=== PATIENT | male | born 1970 | race Caucasian/White ===

== ENCOUNTER → 2018-06-03 08:37 | Outpatient (CLI) | payer OTHER, SELFPAY ==
[2018-06-03 09:20] LABS: Absolute Lymphocyte Count 1.31 X10^3/ul (0.83-4.51); Absolute Neutrophil Count 5.2 X10^3/uL (2.0-7.7); Basophil# 0.04 X10^3/uL; Basophil% 0.5 % (0-1); Eosinophil# 0.07 X10^3/uL; Hematocrit 45.2 % (40-54); Hemoglobin 15.2 g/dl (13.0-16.5); Lymphocyte # 1.31 X10^3/ul (4.0); Mean Corp Hgb Conc 33.6 g/gl (32-36); Mean Corpuscular Hgb 29.2 pg (27.0-32.0); Mean Corpuscular Volume 86.9 fL (80-94); Mean Platelet Vol. 10.1 fl (6.2-12.0); Monocyte# 0.66 X10^3/uL; Monocyte% 9.1 % (0-10); Neutrophil % 71.3 % (47-70); Platelet Count 252 K/mm3 (150-450); RBC Distribution Width CV 12.4 % (11.6-14.6); RBC Distribution Width SD 39.5 fl (35.1-43.9); White Blood Count 7.3 K/mm3 (4.4-11.0)
[2018-06-03 09:25] LABS: POSITIVE COUNT NO; POSITIVE DIFFERENTIAL NO; POSITIVE MORPHOLOGY NO
[2018-06-03 10:01] LABS: AST(SGOT) 14 U/L (15-37); Alanine Aminotransfer ALT/SGPT 20 U/L (16-61); Albumin, Serum 3.5 g/dL (3.2-5.0); Alkaline Phosphatase 71 U/L (45-117); Anion Gap 10 (5-15); BUN 13 mg/dL (7-18); BUN/Creat Ratio 9.4 RATIO (10-20); Bilirubin, Direct 0.15 mg/dL (0.00-0.30); Calcium,Total 8.6 mg/dL (8.5-10.1); Chloride 102 mmol/L (98-107); Cholesterol 152 mg/dL (200); Creatinine, Serum 1.38 mg/dL (0.70-1.30); EST Glomerular Filtration Rate 59 mL/min (>60); Est Glom Filt Rate - Afr Amer 71 mL/min (>60); Globulin 4.5 g/dL (2.2-4.2); Glucose 97 mg/dL (74-106); High Density Lipoprotein 47 mg/dL; PSA,Total - Annual Screen 1.42 ng/mL (0.00-4.00); Potassium 4.2 mmol/L (3.5-5.1); Sodium Level 139 mmol/L (136-145); Triglycerides 67 mg/dL; Very Low Density Lipoprotein 13 mg/dL (5-40)
== END ==
PROVIDERS: Family Provider Internal Medicine; PCP Internal Medicine; Visit Provider Internal Medicine
DX: K57.30 Diverticulosis of large intestine without perforation or abscess without bleeding (principal); N41.0 Acute prostatitis
CPT/HCPCS: 36415; 80048; 80061; 80076; 84153; 85025; G0103

== ENCOUNTER 2018-07-31 10:46 | Emergency (ER) | payer OTHER, SELFPAY ==
[2018-07-31 10:47] VITALS: BP 119/86; PULSE 85; RESP 16; TEMP 36.8; O2SAT 97; BMI 25.4
[2018-07-31 11:49] LABS: Hematocrit 45.6 % (40-54); Hemoglobin 15.8 g/dl (13.0-16.5); Mean Corp Hgb Conc 34.6 g/gl (32-36); Mean Corpuscular Hgb 30.3 pg (27.0-32.0); Mean Corpuscular Volume 87.5 fL (80-94); Mean Platelet Vol. 10.2 fl (6.2-12.0); Platelet Count 194 K/mm3 (150-450); RBC Distribution Width CV 13.2 % (11.6-14.6); RBC Distribution Width SD 42.6 fl (35.1-43.9); Red Blood Count 5.21 M/mm3 (4.6-6.2); Scan Indicated on CBC? Y/N NO; White Blood Count 6.1 K/mm3 (4.4-11.0)
--- NOTE | 2018-07-31 12:48 | ED.DCSUM_ITS ---
History of Present Illness Chief Complaint: Nosebleed Informant: Patient Onset: Hours - 2 Context: Sudden Onset - spontaneous Timing: Intermittent Quality: heavy bleeding Location: right naris, followed by bilaterally Current Severity: stopped Maximum Severity: Severe Worsened by: nothing Relieved by: nothing Associated Symptoms: near-syncopal, nauseated -- resolved; swallowed lots of blood Narrative: Patient states for quite a while, he was having significant amount of bleeding, it was sprain out of the right side of his nose everywhere and he was swallowing significant amounts, he did tilt back and eventually blood was coming out of both sides even though initially it was the right. He states that holding pressure did not seem to help, although with time the bleeding seemed to stop spontaneously and after that he swallowed what felt like a large clot, and now the right side of his nose feels clear he can breathe through it, and the bleeding has stopped and now his symptoms are gone. He feels like he lost a lot of blood after looking around and swallowing a lot of blood. He states he has had mild intermittent bleeding about 4 times in the past week but nothing like what he experienced prior to arrival today. Past Medical History - Allergies and Home Meds Allergies/Adverse Reactions: Allergies No Known Allergies Allergy (Verified 07/31/18 10:47) Smoking Status: Never smoker Drugs: None Review of Systems All systems negative except as indicated General: Reports: Malaise - and near-syncopal earlier; better now ENT: Reports: - - nosebleed Gastrointestinal: Reports: Nausea Physical Exam Vital Signs/Narrative: Vital Signs Temp Pulse Resp BP Pulse Ox 07/31/18 10:47 98.2 F 85 16 119/86 H 97 Inital Vital Signs reviewed: Yes General: Well nourished, Well developed, - - Well-appearing, NAD Head: Normocephalic, Atraumatic Eyes: Perrl, EOMI ENT: Moist mucous membranes, No rhinorrhea, - - Posterior oropharynx clear, no bleeding or blood. Bilateral nares clear with no source anterior at Kesselbach' s plexus. No septal perforation or deviation.. Negative for: Sinus tenderness Neck: Supple, Nontender, - - no stridor Respiratory: No distress, CTA bilaterally Skin: Normal color, No rash Neurological: Alert, Oriented x3, Cranial nerves II-XII grossly intact, Normal Strength, Normal Sensation Psychological: Normal affect Diagnostic/Tx/Re-eval Laboratory Tests 07/31/18 11:40 WBC 6.1 RBC 5.21 Hgb 15.8 Hct 45.6 MCV 87.5 MCH 30.3 MCHC 34.6 RDW 13.2 RDW Differential 42.6 Plt Count 194 MPV 10.2 - Medical Decision Making Patient was monitored for a couple hours in the ER while we waited for a CBC to come back which was normal. He had no recurrent bleeding. We talked at length about packing placement, and the possibility of bleeding recurrence. It sounds like it is more likely to be anterior, but it is certainly not extremely anterior, or reachable with pressure to the nose evidently, and the source is not able to be seen by myself. I do not have the ability to scope his nose here in the ER. After lots of discussion, he decided to avoid packing and follow-up with ENT, and actually after calling the office got an appointment for about an hour after discharge. He was requesting discharge and was given appropriate instructions, including avoiding hot beverages, drinking through a straw, or any foreign object up his nose. ED Disposition - Plan for ED Patient: Disposition: Home or Assisted Living Chief Complaint: Nosebleed Diagnosis: Acute anterior epistaxis Instructions: Nosebleed Referrals: Frederick Tiwari MD [STAFF PHYSICIAN] - As soon as possible ()
== END 2018-07-31 12:53 | disposition home or self-care (01) ==
PROVIDERS: Emergency Provider Emergency Medicine; Family Provider Internal Medicine; PCP Internal Medicine
DX: R04.0 Epistaxis (principal); R55 Syncope and collapse; R11.0 Nausea
CPT/HCPCS: 36415; 85027; 99282

== ENCOUNTER 2018-07-31 17:36 | Emergency (ER) | payer OTHER, SELFPAY ==
[2018-07-31 17:37] VITALS: BP 122/87; PULSE 99; RESP 16; TEMP 36.4; O2SAT 99; BMI 25.4
--- NOTE | 2018-07-31 18:00 | ED.DCSUM_ITS ---
- ER Visit Summary Date of Service: 07/31/18 Chief Complaint: Nosebleed History of Present Illness: The patient is a 47 M who presents for intermittent nosebleeds today. Patient was evaluated earlier today for epistaxis, and had no active bleeding at the time of evaluation. He was discharged home and followed up immediately with Dr. Tiwari, at which time he received both a rigid scope and a flexible scope without any noted polyps, tumors, erosions or obvious sources of the bleeding. Patient had no further bleeding in the ENT office. He was given instructions on Afrin and saline usage. Patient went home and then had recurrence of the bleeding. It has mainly been from the right nostril but will come out of both. He would bend forward and applied pressure with a towel but then would feel blood running down the posterior oropharynx. Patient returns for another evaluation. He has no fever, nausea, headache, weakness or dizziness. He denies any coughing, sneezing or blowing his nose. Patient has noted worsening of the bleeding if he bends over. Physical Examination: Vital signs: afebrile, hemodynamically stable, no hypoxia on room air General: well nourished, well developed, in no distress Skin: warm, dry, no rash, no pallor HEENT: normocephalic and atraumatic; PERRL, EOMI, no conjunctiva pallor, moist mucous membranes, ear or pharyngeal blood noted, patient has dried blood in bilateral nares, no active bleeding noted Cardiovascular: regular rate and rhythm without murmurs, no peripheral edema, 2 + pulses all distal extremities Respiratory: No increased work of breathing, lungs are clear to auscultation bilaterally, no rales, rhonchi or wheezing Abdominal: Abdomen is soft, nontender with normoactive bowel sounds, no guarding or rebound, no masses MSK: Moves all extremities, no deformities, normal strength Neuro: Awake and alert, oriented ?4. No facial droop, sensation and motor function intact and symmetric Test Results: Abnormal Lab Results 07/31/18 07/31/18 17:41 17:41 WBC 9.5 RBC 5.06 Hgb 15.1 Hct 45.2 MCV 89.3 MCH 29.8 MCHC 33.4 RDW 13.4 RDW Differential 43.9 Plt Count 214 MPV 10.5 Immature Gran % (Auto) 0.300 Neut % (Auto) 71.9 H Lymph % (Auto) 20.8 [place] % (Auto) 6.1 Eos % (Auto) 0.7 Baso % (Auto) 0.2 Absolute Neuts (auto) 6.9 Absolute Lymphs (auto) 1.98 Total Counted Not Reportable PT 13.5 INR 1.0 APTT 26.3 Emergency Department Course and Treatment: This is patient's third emergency department visit today, as he initially went to [place] and now has been to [place] twice for the intermittent bleeding. He also has been seen by ENT today. Because of the heavy bleeding the patient is describing, labs were performed showing no anemia and no abnormal PT/INR/PTT. Patient had no obvious bleeding on exam, however given that he continues to have bleeding when he gets home, he presents for nasal packing and possibly admission. Patient was discussed with Dr. Weiss who recommended that patient have packing placed but that admission is not necessarily indicated for the current packing materials such as Rhino Rocket or Merocel. Afrin was instilled in the bilateral nostrils. Attempted to place a 7.5 cm anterior/posterior Rhino Rocket in patient's right naris, however heavy resistance was met after only advancing it approximately 3 cm. Patient did not tolerate any further pressure. Further attempts were aborted. Patient was observed for another period of time and still had no active hemorrhage. Long discussion was had about patient's options , and further Afrin was instilled. Patient was encouraged to walk around the hospital for approximately 20-30 minutes to see if any hemorrhage recurred. Patient continued to be epistaxis free. Patient did not like the discomfort of the nasal packing, and no other materials were available at this facility at this time. We discussed with patient that if he does have further epistaxis and requires further emergency care, he can always return to this facility, but he also has the option to go to a larger facility that has 24/7 ENT coverage. Patient was discharged home without any further epistaxis. He will continue to use Afrin and saline as instructed by Dr. Weiss. He will call the office first thing in the morning to arrange follow-up appointment. Patient discharged home. Treatment Plan: [] Disposition: [] Impression: Recurrent epistaxis, resolved This note was generated with Allegorithmication software. It may contain incorrect words, spelling, and punctuation that were not noted in review of the chart prior to signing ED Disposition - Plan for ED Patient: Disposition: Home or Assisted Living Chief Complaint: Nosebleed Instructions: ED Nosebleed Referrals: Frederick Tiwari MD [STAFF PHYSICIAN] - 1 Day Vahe Turner MD [Primary Care Provider] - Additional Instructions: Follow all instructions that you were given by Dr. Tiwari. Use the Afrin and saline to help prevent further bleeding. Do not bend your head below your heart for any reason, including tying her shoe, picking something up off the floor, or even bending over the sink. Rest and follow-up with ENT tomorrow. If you have return of bleeding and are unable to get it to stop within 45 minutes to 1 hour, please return to an emergency department for further evaluation. If you have any worsening of your condition or any new concerning symptoms, please return immediately to the emergency department for another evaluation.
[2018-07-31 18:13] LABS: Absolute Lymphocyte Count 1.98 X10^3/ul (0.83-4.51); Absolute Neutrophil Count 6.9 X10^3/uL (2.0-7.7); Basophil# 0.02 X10^3/uL; Basophil% 0.2 % (0-1); Eosinophil# 0.07 X10^3/uL; Eosinophils% 0.7 % (0-5); Hematocrit 45.2 % (40-54); Hemoglobin 15.1 g/dl (13.0-16.5); Lymphocyte # 1.98 X10^3/ul (4.0); Lymphocyte % 20.8 % (19-41); Mean Corp Hgb Conc 33.4 g/gl (32-36); Mean Corpuscular Hgb 29.8 pg (27.0-32.0); Mean Corpuscular Volume 89.3 fL (80-94); Mean Platelet Vol. 10.5 fl (6.2-12.0); Monocyte# 0.58 X10^3/uL; Monocyte% 6.1 % (0-10); Neutrophil # 6.86 X10^3/uL (2.7-7.7); Neutrophil % 71.9 % (47-70); Platelet Count 214 K/mm3 (150-450); RBC Distribution Width CV 13.4 % (11.6-14.6); RBC Distribution Width SD 43.9 fl (35.1-43.9); Red Blood Count 5.06 M/mm3 (4.6-6.2); White Blood Count 9.5 K/mm3 (4.4-11.0)
[2018-07-31 18:14] LABS: POSITIVE COUNT NO; POSITIVE DIFFERENTIAL NO; POSITIVE MORPHOLOGY NO
[2018-07-31 18:15] LABS: Prothrombin Time (Protime)PT. 13.5 SECONDS (11.7-14.9)
[2018-07-31 18:16] LABS: Partial Thromboplast Time 26.3 Seconds (24.1-36.2)
[2018-07-31] MEDS: Oxymetazoline 0.05% 1 SPRAY SPRAY.BTL 2 SPRAY NASAL (19:05)
[2018-07-31 20:29] VITALS: BP 171/104; PULSE 88; RESP 16; O2SAT 98
--- NOTE | 2018-07-31 21:35 | ED.DEP ---
ED Disposition - Plan for ED Patient: Disposition: Home or Assisted Living Chief Complaint: Nosebleed Instructions: ED Nosebleed Referrals: Vahe Turner MD [Primary Care Provider] - Frederick Tiwari MD [STAFF PHYSICIAN] - 1 Day Additional Instructions: Follow all instructions that you were given by Dr. Tiwari. Use the Afrin and saline to help prevent further bleeding. Do not bend your head below your heart for any reason, including tying her shoe, picking something up off the floor, or even bending over the sink. Rest and follow-up with ENT tomorrow. If you have return of bleeding and are unable to get it to stop within 45 minutes to 1 hour, please return to an emergency department for further evaluation. If you have any worsening of your condition or any new concerning symptoms, please return immediately to the emergency department for another evaluation.
[2018-07-31 21:58] VITALS: RESP 18
== END 2018-07-31 21:59 | disposition home or self-care (01) ==
PROVIDERS: Emergency Provider Emergency Medicine; Family Provider Internal Medicine; PCP Internal Medicine
DX: R04.0 Epistaxis (principal)
CPT/HCPCS: 36415; 85025; 85027; 85610; 85730; 99282; A4216

== ENCOUNTER → 2018-12-31 08:52 | Outpatient (CLI) | payer OTHER, SELFPAY ==
[2018-12-31 09:57] LABS: Absolute Lymphocyte Count 1.36 X10^3/ul (0.83-4.51); Absolute Neutrophil Count 3.5 X10^3/uL (2.0-7.7); Basophil# 0.03 X10^3/uL; Basophil% 0.5 % (0-1); Eosinophils% 1.8 % (0-5); Hematocrit 45.9 % (40-54); Hemoglobin 15.3 g/dl (13.0-16.5); Lymphocyte # 1.36 X10^3/ul (4.0); Lymphocyte % 24.7 % (19-41); Mean Corp Hgb Conc 33.3 g/gl (32-36); Mean Corpuscular Hgb 27.1 pg (27.0-32.0); Mean Corpuscular Volume 81.2 fL (80-94); Mean Platelet Vol. 10.8 fl (6.2-12.0); Monocyte# 0.47 X10^3/uL; Monocyte% 8.5 % (0-10); Neutrophil # 3.53 X10^3/uL (2.7-7.7); Neutrophil % 64.3 % (47-70); POSITIVE COUNT NO; POSITIVE DIFFERENTIAL NO; POSITIVE MORPHOLOGY NO; Platelet Count 233 K/mm3 (150-450); RBC Distribution Width CV 16.6 % (11.6-14.6); RBC Distribution Width SD 49.6 fl (35.1-43.9); Red Blood Count 5.65 M/mm3 (4.6-6.2); White Blood Count 5.5 K/mm3 (4.4-11.0)
[2018-12-31 10:09] LABS: AST(SGOT) 14 U/L (15-37); Alanine Aminotransfer ALT/SGPT 27 U/L (16-61); Alkaline Phosphatase 67 U/L (45-117); Anion Gap 8 (5-15); BUN 19 mg/dL (7-18); BUN/Creat Ratio 13.7 RATIO (10-20); Calcium,Total 8.6 mg/dL (8.5-10.1); Chloride 104 mmol/L (98-107); Cholesterol 187 mg/dL (200); Creatinine, Serum 1.39 mg/dL (0.70-1.30); EST Glomerular Filtration Rate 58 mL/min (>60); Est Glom Filt Rate - Afr Amer 70 mL/min (>60); Globulin 3.8 g/dL (2.2-4.2); Glucose 95 mg/dL (74-106); High Density Lipoprotein 47 mg/dL; Potassium 4.2 mmol/L (3.5-5.1); Protein, Total 7.8 g/dL (6.4-8.2); Sodium Level 137 mmol/L (136-145); Triglycerides 195 mg/dL; Very Low Density Lipoprotein 39 mg/dL (5-40)
== END ==
PROVIDERS: Family Provider Internal Medicine; PCP Internal Medicine; Referring Provider Internal Medicine; Visit Provider Internal Medicine
DX: K58.0 Irritable bowel syndrome with diarrhea (principal); E78.2 Mixed hyperlipidemia; Z12.5 Encounter for screening for malignant neoplasm of prostate
CPT/HCPCS: 36415; 80048; 80061; 80076; 85025

== ENCOUNTER 2019-01-26 13:03 | Emergency (ER) | payer OTHER, SELFPAY ==
[2019-01-26 13:04] VITALS: BP 129/88; PULSE 98; RESP 18; TEMP 37.3; O2SAT 99; BMI 26.0
--- NOTE | 2019-01-26 13:39 | RAD_ITS ---
STUDY: X-RAY CHEST REASON FOR EXAM: Male, 48 years old. Cough and fever. Flulike symptoms. TECHNIQUE: PA and lateral views of the chest. COMPARISON: None. FINDINGS: Minimal increased linear markings in the right middle lobe and lingular segment of the left upper lobe suggestive of linear atelectasis and/or scarring. There is no demonstrated pleural abnormality. Normal size heart. Normal mediastinum and kimber. Normal visualized pulmonary arteries. Normal visualized aortic arch and descending thoracic aorta. Normal visualized thoracic spine. Normal visualized ribs, clavicles, and shoulders. There is no demonstrated abnormality of the visualized soft tissue structures of the upper abdomen. RAD/Chest PA and Lateral IMPRESSION: Findings suggestive of linear atelectasis and/or scarring in the right middle lobe and lingular segment of the left upper lobe. Electronically Signed: Sammy Cameron MD at 14:57 EST , Service support ,
--- NOTE | 2019-01-26 13:42 | ED.DCSUM_ITS ---
- ER Visit Summary Date of Service: 01/26/19 Chief Complaint: Cough and fever with sweats History of Present Illness: The patient is a 48 M history of diverticulitis currently is on Cipro for that. Since Saturday he has had a cough with fever and sweats at night. Times chills. No shortness of breath. Coworkers with influenza. Nonproductive cough. States his diverticulitis is improving and he has minimal to no abdominal pain. No dysuria. Physical Examination: Appearing middle-aged male. Vital signs are stable. He is afebrile. He does not look septic or toxic. Distress. Pulse ox 9 9% room air no signs of hypoxia. HEENT exam unremarkable. TMs are normal. Posterior pharynx moist and pink no erythema or exudate. Neck nontender no lymphadenopathy. Trachea midline. Lungs clear to auscultation bilaterally. Dry cough. Heart regular rhythm no murmur. Abdomen is soft. Nondistended normal bowel sounds no peritoneal signs. Patient is moving all 4 extremities. Neurologically is awake alert with no focal motor deficits. Skin unremarkable. Test Results: Chest x-ray two-view shows no acute abnormality. Mild atelectasis. No infiltrate. Read both of myself and radiologist. Influenza swab is negative. Emergency Department Course and Treatment: Patient's history and exam is consistent with a viral doing well. Treatment Plan: Plenty of fluids and rest. Tylenol Motrin for fever. Follow-up if not improving. Disposition: Discharge Impression: Acute fever and cough secondary to viral respiratory infection This note was generated with Submittable dictation software. It may contain incorrect words, spelling, and punctuation that were not noted in review of the chart prior to signing ED Disposition - Plan for ED Patient: Referrals: Vahe Turner MD [Primary Care Provider] -
[2019-01-26 14:42] VITALS: BP 130/77; PULSE 82; RESP 18; TEMP 37.1; O2SAT 98
--- NOTE | 2019-01-26 15:04 | ED.DEP ---
ED Disposition - Plan for ED Patient: Disposition: Home or Assisted Living Instructions: ED URI Viral Referrals: Vahe Turner MD [Primary Care Provider] - 1 Week if not improving Additional Instructions: Plenty of fluids and rest. Follow-up with your doctor if not improving. Alternate Tylenol Motrin for fever.
[2019-01-26 15:21] VITALS: PULSE 82; RESP 18; O2SAT 98
== END 2019-01-26 15:21 | disposition home or self-care (01) ==
PROVIDERS: Emergency Provider Emergency Medicine; Family Provider Internal Medicine; PCP Internal Medicine
DX: J06.9 Acute upper respiratory infection, unspecified (principal); K57.92 Diverticulitis of intestine, part unspecified, without perforation or abscess without bleeding; R50.9 Fever, unspecified; R05 Cough
CPT/HCPCS: 71046; 87804; 99282

== ENCOUNTER → 2019-06-29 08:55 | Outpatient (CLI) | payer OTHER, SELFPAY ==
[2019-06-29 09:46] LABS: Absolute Lymphocyte Count 1.61 X10^3/uL (0.83-4.51); Absolute Neutrophil Count 2.7 X10^3/uL (2.0-7.7); Basophil# 0.03 X10^3/uL; Basophil% 0.6 % (0-1); Eosinophil# 0.15 X10^3/uL; Hematocrit 48.3 % (40-54); Lymphocyte # 1.61 X10^3/ul (4.0); Lymphocyte % 31.9 % (19-41); Mean Corp Hgb Conc 33.1 g/dL (32-36); Mean Corpuscular Hgb 29.6 pg (27.0-32.0); Mean Corpuscular Volume 89.4 fL (80-94); Mean Platelet Vol. 10.6 fl (6.2-12.0); Monocyte% 9.9 % (0-10); NRBC Flagged by Analyzer 0 % (0-5); Neutrophil # 2.74 X10^3/uL (2.7-7.7); Neutrophil % 54.4 % (47-70); Platelet Count 209 K/mm3 (150-450); RBC Distribution Width CV 12.9 % (11.6-14.6); RBC Distribution Width SD 41.9 fl (35.1-43.9)
[2019-06-29 10:17] LABS: AST(SGOT) 22 U/L (15-37); Alanine Aminotransfer ALT/SGPT 29 U/L (16-61); Alkaline Phosphatase 78 U/L (45-117); Anion Gap 8 (5-15); BUN 21 mg/dL (7-18); BUN/Creat Ratio 14.8 RATIO (10-20); Bilirubin, Direct 0.15 mg/dL (0.00-0.30); Calcium,Total 8.9 mg/dL (8.5-10.1); Chloride 104 mmol/L (98-107); Cholesterol 218 mg/dL (200); Creatinine, Serum 1.42 mg/dL (0.70-1.30); EST Glomerular Filtration Rate 56 mL/min (>60); Est Glom Filt Rate - Afr Amer 68 mL/min (>60); Globulin 3.4 g/dL (2.2-4.2); Glucose 104 mg/dL (74-106); High Density Lipoprotein 50 mg/dL; Potassium 4.6 mmol/L (3.5-5.1); Protein, Total 7.4 g/dL (6.4-8.2); Sodium Level 139 mmol/L (136-145); Triglycerides 124 mg/dL; Very Low Density Lipoprotein 25 mg/dL (5-40)
== END ==
PROVIDERS: Family Provider Internal Medicine; PCP Internal Medicine; Referring Provider Internal Medicine; Visit Provider Internal Medicine
DX: K57.30 Diverticulosis of large intestine without perforation or abscess without bleeding (principal)
CPT/HCPCS: 36415; 80048; 80061; 80076; 85025

== ENCOUNTER 2019-10-22 06:01 | Day surgery (SDC) | payer OTHER, SELFPAY ==
[2019-09-24 13:47] VITALS: BMI 26.0
--- NOTE | 2019-10-13 12:55 | EKG12_ITS ---
Test Reason : PREOP Blood Pressure : / mmHG Vent. Rate : 071 BPM Atrial Rate : 071 BPM P-R Int : 138 ms QRS Dur : 092 ms QT Int : 378 ms P-R-T Axes : 054 052 044 degrees QTc Int : 410 ms Normal sinus rhythm Normal ECG Confirmed by ASHLIE MAE, ADOLFO ([id number]), content editor LORIN REA ([id number]) on 10/14/2019 9:41:48 AM Referred By: Anton Witt Confirmed By:ADOLFO DAILEY MD
[2019-10-22] VITALS (9 sets, daily range): BP systolic 92–118; BP diastolic 63–86; PULSE 63–81; RESP 16; TEMP 35.8–36.5; O2SAT 92–98; BMI 26.4
--- NOTE | 2019-10-22 07:10 | PCM.HP.BLA ---
Problem List (1) Left inguinal hernia Status: Acute History and Physical Date of Admission: 10/22/19 Intake Vital Signs 09/24/19 Body Mass Index (BMI) 26.0 09/24/19 Height 5 ft 9 in 09/24/19 Weight: 172 lb 09/24/19 Body Mass Index (BMI) 25.4 09/24/19 Blood Pressure 128/82 H 09/24/19 Blood Pressure Location Rt brachial 09/24/19 Blood Pressure Position Sitting 09/24/19 Respiratory Rate 16 09/15/19 Body Mass Index (BMI) 26.0 Intake Visit Reasons: Lt Inguinal Hernia Awning Erector Required: No Is patient in pain?: No Allergies No Known Allergies Allergy (Verified 09/24/19 13:46) Medications Pantoprazole Sodium [Protonix] 40 mg PO DAILY 07/31/18 [History Confirmed 01/26/19] cetirizine 10 mg capsule 10 mg PO DAILY 09/24/19 [History Confirmed 09/24/19] PFS Medical History Diverticulitis small intestine (Acute) Surgical History Admission for reversal of vasectomy (Acute) S/P vasectomy (Acute) S/P vasectomy (Acute) Social History (Updated 09/24/19 @ 15:29 by Anton Witt MD) Smoking Status: Never smoker alcohol intake: current alcohol intake frequency: 3 or more drinks per day HPI HPI HPI: HAKEEM JERRY, is a 48 M who presents to the office today for HPI HPI HPI: HAKEEM JERRY, is a 48 M who presents to the office today for Left inguinal hernia. Patient reports that he has been having bulging and pain in the left groin region for the last 6 weeks. It has been especially bad in the last 2 weeks. He says that it hurts when heavy lifting. There is no pain on the opposite side. No nausea or vomiting. ROS General General: No weight change or fatigue Cardio Cardiovascular: No murmur, pacemaker, heart disease, atrial fibrillation, high blood pressure, heart attack, heart stent, palpitations, shortness of breat with exertion or chest pain Psych Psychiatric: No depression or anxiety Resp Respiratory: No shortness of breath, No sleep apnea, No cough, No COPD, No asthma, No emphysema, No wheezing Gastro Gastrointestinal: Yes abdominal pain, No nausea or vomiting, No diarrhea, No constipation, No blood in stool, Yes acid reflux, No hemorrhoids, No ulcers, No gallbladder problem, No black,tarry stools Additional Details: Left groin pain and bulging Edmar Hematologic: No blood thinners Exam Const General: cooperative Orientation: alert, oriented x3 Resp Effort & Inspection: normal respiratory effort Auscultation: clear to auscultation bilaterally Cardio Rate: regular rate Rhythm: regular rhythm Heart Sounds: no murmurs GI Inspection: non-distended Palpation: soft, hernia indirect inguinal on the left, nontender Assessment & Plan Problems 1. Left inguinal hernia K40.90 Plan The patient has a left inguinal hernia which is reducible. He is having pain in this area and would like it repaired. I discussed open and laparoscopic repair with the patient. The patient would like robotic assisted laparoscopic inguinal hernia repair with mesh. I discussed the risks of the procedure including but not limited to bleeding, injury to underlying bowel, infection, chronic groin pain, recurrence of hernia, injury to spermatic cord. The patient understands all the risks as well to proceed. I also discussed that if there was a contralateral hernia present that this would be able to be repaired at the same time the patient would like that option as well. He would like me to repair a right inguinal hernia if it is present. Anton Witt MD Pager: [facility] [address] [place] [address], [address] [place] [address] Office:
[2019-10-22] MEDS: Lactated Ringers 1,000 ML 100 ML IV ×2 (07:18→07:20)
[2019-10-22] MEDS: Cefazolin 2 GM in 0.9% Normal Saline 100 ML IV (07:29)
[2019-10-22] MEDS: Bupivacaine Mpf 0.5% 30 ML VIAL (09:21)
--- NOTE | 2019-10-22 10:08 | PCM.DC.HER ---
Discharge Diet: Light diet - advance as tolerated Discharge Activity: Return to Normal Activity, May Not Drive - for 2-3 days or while taking narcotic pain meds., May Shower - with the bandage in place 1-2 days after surgery. Lifting Restrictions: 20 pounds for 4 weeks. Additional Activity Instructions:: Climbing stairs is fine, walking is encouraged. Sitting in bed may be uncomfortable. Sitting up using your lateral muscles (sitting up sideways) is usually more comfortable. Do not drive, work heavy equipment of sign legal documents for 24 hours. If your hernia repair was an ingunial repair, you may have scrotal swelling, an ice pack and/or athletic support can provide more comfort. Pain medications may cause nausea, you should typically eat light foods as you take your pain medications. Pain medications may also cause constipation. If you have difficulty with this, discuss with your doctor. Call your doctor if your incision/area has: Continuous Slow Oozing, Sudden Increased Bleeding, Increased Pain/ Swelling, Increased Redness, Foul Smelling Discharge Call your doctor if you observe: Fever of 101 or Higher Suture Line Care: Avoid Pulling/Pushing, Avoid Pinching/Bending Change Dressing in (Days):: 3 - Leave steri-strips for 1 week. May protect with a guaze bandaid. Cleanse incision/area with: Keep Dressing Clean & Dry Allergies/Adverse Reactions: Allergies No Known Allergies Allergy (Verified 10/22/19 06:38) Medications to take at Discharge Pantoprazole Sodium [Protonix] 40 mg PO DAILY 07/31/18 cetirizine 10 mg capsule 10 mg PO DAILY 09/24/19 Albuterol Inhaler [Ventolin Hfa (SP)] 1 - 2 puff INHALATION Q4H PRN PRN 10/13/19 Oxycodone HCl/Acetaminophen [Percocet 5/325] 1 - 2 tablet PO Q4H PRN PRN 4 Days #10 tablet 10/22/19 The following prescriptions were given: Oxycodone HCl/Acetaminophen [Percocet 5/325] 1 - 2 tablet PO Q4H PRN PRN 4 Days #10 tablet PRN Reason: Pain Transmission Status: Sent to [facility] Orders to be completed after discharge: 12 Lead EKG [CVS] Time Frame: 10/13/19, Facility: [facility], Location: Cardiovascular Services Primary Care Physician: Vahe Turner MD [Primary Care Provider] - Test Results: Test results from this visit will be discussed in further detail at your follow-up appointment, if applicable. Please Follow Up With: Anton Witt MD When: Please call to schedule 2 week follow up appointment. [phone]
--- NOTE | 2019-10-22 10:10 | OP.PCM_ITS ---
Problem List (1) Left inguinal hernia Status: Acute Report of Operation Date of Procedure: 10/22/19 Pre-Operative Diagnosis: Left inguinal hernia Post-Operative Diagnosis: Bilateral inguinal hernia Surgery/Procedure Performed:: Robotic assisted laparoscopic bilateral inguinal hernia repair with mesh Specimen's removed: None Description of Procedure: Patient was brought back to the operating room and general anesthesia was induced. The abdomen was prepped and draped in usual sterile fashion. An incision was made superior to the umbilicus and the fascia was elevated and a Veress needle was placed into the abdomen. Drop test was performed. The abdomen was insufflated to 15 mmHg. A camera port was placed through this incision and the abdomen was inspected. The patient had adhesions in his lower abdomen which were likely from his repeated bouts of diverticulitis. He had a large indirect hernia on the left and a large direct hernia on the right. 8 mm ports were placed in the right and left abdominal sidewall under direct visualization. The robot was docked and the patient was placed in the steep Trendelenburg. Next using graspers the adhesions were bluntly taken down from the abdominal wall until the bladder was encountered. These came down fairly easily. Next the left inguinal canal was addressed and an incision was made in the peritoneum. The peritoneum was dissected free inferiorly until the indirect hernia was encountered. The hernia was reduced into the abdomen completely. The dissection continued posteriorly. The dissection then was taken medially until the pubic tubercle was reached. Next a piece of pro-ross furnace operator mesh was placed in the left inguinal region and unfolded. The peritoneum was reapproximated to the abdominal wall using running 3-0 vloc suture. Next attention was paid to the right side of the abdomen. The right peritoneum was incised and dissected inferiorly until the direct hernia sac was reduced into the abdomen. This was carried lateral and the indirect space was inspected. There was no large lipoma. Next a piece of pro-ross furnace operator mesh was placed into the right inguinal region and unfolded completely covering the direct and indirect spaces. The peritoneum was reapproximated using running 3-0V lock suture. Next both groins were inspected and both pieces of mesh were completely covered with peritoneum and there was no folding of the mesh. The robot was undocked and the patient was allowed to desufflate of air. Scrotum was inspected and the air was pushed out of the scrotum and both testicles were present in the scrotum. Next the trochars were removed and the incisions were injected with lidocaine and closed with interrupted 4-0 Monocryl sutures and Steri-Strips and bandages. Patient t olerated the procedure well was brought back in stable condition. Grafts/Implants Used: [employer] Consultant mesh - Admit VTE Documentation VTE Mechan Device Prophylaxis: SCD's
[2019-10-22] MEDS: Acetaminophen 325 MG Tablet PO (10:55)
[2019-10-22] MEDS: oxyCODONE 5 MG Tablet PO (10:56)
== END 2019-10-22 12:24 | disposition home or self-care (01) ==
LOC: SDC 06:01 → AC 06:02
PROVIDERS: Family Provider Internal Medicine; PCP Internal Medicine; Referring Provider Surgery; Visit Provider Surgery
PROC: 0YQ64ZZ Repair Left Inguinal Region, Percutaneous Endoscopic Approach (ICD-10-PCS; CPT 49650; principal; 2019-10-22 07:10)
DX: K40.20 Bilateral inguinal hernia, without obstruction or gangrene, not specified as recurrent (principal)
CPT/HCPCS: 49650; 93005; J7120; J2405

== ENCOUNTER → 2020-01-11 10:23 | Outpatient (CLI) | payer OTHER, SELFPAY ==
[2019-10-22 06:38] VITALS: BMI 26.4
[2020-01-11 11:15] LABS: Absolute Lymphocyte Count 1.62 X10^3/uL (0.83-4.51); Absolute Neutrophil Count 2.9 X10^3/uL (2.0-7.7); Basophil# 0.03 X10^3/uL; Basophil% 0.6 % (0-1); Eosinophil# 0.14 X10^3/uL; Eosinophils% 2.7 % (0-5); Hematocrit 46.2 % (40-54); Lymphocyte # 1.62 X10^3/ul (4.0); Lymphocyte % 31.3 % (19-41); Mean Corp Hgb Conc 32.5 g/dL (32-36); Mean Corpuscular Hgb 29.3 pg (27.0-32.0); Mean Corpuscular Volume 90.2 fL (80-94); Mean Platelet Vol. 10.3 fl (6.2-12.0); Monocyte# 0.44 X10^3/uL; Monocyte% 8.5 % (0-10); NRBC Flagged by Analyzer 0 % (0-5); Neutrophil # 2.94 X10^3/uL (2.7-7.7); Neutrophil % 56.7 % (47-70); Platelet Count 203 K/mm3 (150-450); RBC Distribution Width CV 12.1 % (11.6-14.6); RBC Distribution Width SD 39.9 fl (35.1-43.9); Red Blood Count 5.12 M/mm3 (4.6-6.2); White Blood Count 5.2 K/mm3 (4.4-11.0)
[2020-01-11 11:56] LABS: BUN 17 mg/dL (7-18); BUN/Creat Ratio 12.1 RATIO (10-20); Creatinine, Serum 1.41 mg/dL (0.70-1.30); EST Glomerular Filtration Rate 57 mL/min (>60); Est Glom Filt Rate - Afr Amer 69 mL/min (>60); Glucose 99 mg/dL (74-106); Protein, Total 7.4 g/dL (6.4-8.2)
[2020-01-11 11:57] LABS: AST(SGOT) 22 U/L (15-37); Alanine Aminotransfer ALT/SGPT 28 U/L (16-61); Alkaline Phosphatase 63 U/L (45-117); Anion Gap 5 (5-15); Bilirubin, Direct 0.18 mg/dL (0.00-0.30); Chloride 106 mmol/L (98-107); Cholesterol 192 mg/dL (200); Globulin 3.4 g/dL (2.2-4.2); High Density Lipoprotein 54 mg/dL; Potassium 4.4 mmol/L (3.5-5.1); Sodium Level 137 mmol/L (136-145); Triglycerides 74 mg/dL; Very Low Density Lipoprotein 15 mg/dL (5-40)
== END ==
PROVIDERS: PCP Internal Medicine; Referring Provider Internal Medicine; Visit Provider Internal Medicine
DX: N18.2 Chronic kidney disease, stage 2 (mild) (principal); E78.2 Mixed hyperlipidemia
CPT/HCPCS: 36415; 80048; 80061; 80076; 85025

== ENCOUNTER → 2020-07-13 09:35 | Outpatient (CLI) | payer OTHER, SELFPAY ==
[2019-10-22 06:38] VITALS: BMI 26.4
[2020-07-13 10:46] LABS: Absolute Lymphocyte Count 1.69 X10^3/uL (0.83-4.51); Absolute Neutrophil Count 3.5 X10^3/uL (2.0-7.7); Basophil# 0.04 X10^3/uL; Basophil% 0.7 % (0-1); Eosinophil# 0.16 X10^3/uL; Eosinophils% 2.7 % (0-5); Hematocrit 47.8 % (40-54); Hemoglobin 15.7 g/dL (13.0-16.5); Lymphocyte # 1.69 X10^3/ul (4.0); Lymphocyte % 28.6 % (19-41); Mean Corp Hgb Conc 32.8 g/dL (32-36); Mean Corpuscular Hgb 30.1 pg (27.0-32.0); Mean Corpuscular Volume 91.6 fL (80-94); Mean Platelet Vol. 10.5 fl (6.2-12.0); Monocyte# 0.46 X10^3/uL; Monocyte% 7.8 % (0-10); NRBC Flagged by Analyzer 0 % (0-5); Neutrophil # 3.53 X10^3/uL (2.7-7.7); Neutrophil % 59.9 % (47-70); Platelet Count 227 K/mm3 (150-450); RBC Distribution Width CV 12.1 % (11.6-14.6); RBC Distribution Width SD 41.1 fl (35.1-43.9); Red Blood Count 5.22 M/mm3 (4.6-6.2); White Blood Count 5.9 K/mm3 (4.4-11.0)
[2020-07-13 11:25] LABS: AST(SGOT) 20 U/L (15-37); Alanine Aminotransfer ALT/SGPT 33 U/L (16-61); Albumin, Serum 3.9 g/dL (3.2-5.0); Alkaline Phosphatase 67 U/L (45-117); Anion Gap 8 (5-15); BUN 18 mg/dL (7-18); BUN/Creat Ratio 12.2 RATIO (10-20); Bilirubin, Direct 0.19 mg/dL (0.00-0.30); Calcium,Total 8.7 mg/dL (8.5-10.1); Chloride 105 mmol/L (98-107); Cholesterol 236 mg/dL (200); Creatinine, Serum 1.47 mg/dL (0.70-1.30); EST Glomerular Filtration Rate 54 mL/min (>60); Est Glom Filt Rate - Afr Amer 65 mL/min (>60); Globulin 3.5 g/dL (2.2-4.2); Glucose 91 mg/dL (74-106); High Density Lipoprotein 54 mg/dL; Potassium 4.1 mmol/L (3.5-5.1); Protein, Total 7.4 g/dL (6.4-8.2); Sodium Level 140 mmol/L (136-145); Triglycerides 146 mg/dL; Very Low Density Lipoprotein 29 mg/dL (5-40)
== END ==
PROVIDERS: PCP Internal Medicine; Visit Provider Internal Medicine
DX: N18.2 Chronic kidney disease, stage 2 (mild) (principal); E78.2 Mixed hyperlipidemia
CPT/HCPCS: 36415; 80048; 80061; 80076; 85025

== ENCOUNTER → 2021-04-24 08:16 | Outpatient (CLI) | payer OTHER, SELFPAY ==
[2019-10-22 06:38] VITALS: BMI 26.4
[2021-04-24 09:45] LABS: ALB/GLOB Ratio 1.1 RATIO (0.9-2.4); AST(SGOT) 20 U/L (15-37); Alanine Aminotransfer ALT/SGPT 26 U/L (16-61); Albumin, Serum 3.7 g/dL (3.2-5.0); Alkaline Phosphatase 66 U/L (45-117); Anion Gap 6 (5-15); BUN 22 mg/dL (7-18); BUN/Creat Ratio 15.5 RATIO (10-20); Calcium,Total 8.6 mg/dL (8.5-10.1); Chloride 105 mmol/L (98-107); Cholesterol 191 mg/dL (200); Creatinine, Serum 1.42 mg/dL (0.70-1.30); EST Glomerular Filtration Rate 56 mL/min (>60); Est Glom Filt Rate - Afr Amer 68 mL/min (>60); Globulin 3.3 g/dL (2.2-4.2); Glucose 98 mg/dL (74-106); High Density Lipoprotein 48 mg/dL; Potassium 4.1 mmol/L (3.5-5.1); Sodium Level 138 mmol/L (136-145); Triglycerides 199 mg/dL; Very Low Density Lipoprotein 40 mg/dL (5-40)
== END ==
PROVIDERS: PCP Family Medicine; Referring Provider Family Medicine; Visit Provider Family Medicine
DX: Z13.220 Encounter for screening for lipoid disorders (principal); Z13.1 Encounter for screening for diabetes mellitus
CPT/HCPCS: 36415; 80053; 80061

== ENCOUNTER → 2021-10-23 16:59 | Outpatient (CLI) | payer OTHER, SELFPAY ==
--- NOTE | 2021-10-23 17:02 | RAD_ITS ---
STUDY: X-RAY CHEST REASON FOR EXAM: Male, 50 years old. COUGH TECHNIQUE: PA and lateral views of the chest. COMPARISON: None. FINDINGS: The lungs are clear and expanded. There is no demonstrated pleural abnormality. Normal size heart. Normal mediastinum and kimber. Normal visualized pulmonary arteries. Normal visualized aortic arch and descending thoracic aorta. Normal visualized thoracic spine. Normal visualized ribs, clavicles, and shoulders. There is no demonstrated abnormality of the visualized soft tissue structures of the upper abdomen. RAD/Chest PA and Lateral IMPRESSION: Normal x-ray examination of the chest. Electronically Signed: Alvaro Wilks MD ([place]) at 17:12 EST , Service support ,
== END ==
PROVIDERS: PCP Family Medicine; Referring Provider Family Medicine; Visit Provider Family Medicine
DX: R05.9 Cough, unspecified (principal)
CPT/HCPCS: 71046; 87633; 87798

== ENCOUNTER 2022-02-23 11:24 | Outpatient (CLI) | payer OTHER, SELFPAY ==
[2022-02-23 12:39] LABS: Anion Gap 3 (5-15); BUN 26 mg/dL (7-18); Chloride 105 mmol/L (98-107); Cholesterol 223 mg/dL (200); Creatinine, Serum 1.53 mg/dL (0.70-1.30); EST Glomerular Filtration Rate 51 mL/min (>60); Est Glom Filt Rate - Afr Amer 62 mL/min (>60); Glucose 99 mg/dL (74-106); High Density Lipoprotein 46 mg/dL; PSA,Total - Annual Screen 1.19 ng/mL (0.00-4.00); Potassium 4.9 mmol/L (3.5-5.1); Sodium Level 136 mmol/L (136-145); Triglycerides 137 mg/dL; Very Low Density Lipoprotein 27 mg/dL (5-40)
== END 2022-02-23 23:59 | disposition home or self-care (01) ==
LOC: LAB 11:26
PROVIDERS: PCP Family Medicine; Visit Provider Nurse Practitioner Family
DX: Z13.220 Encounter for screening for lipoid disorders (principal); Z12.5 Encounter for screening for malignant neoplasm of prostate; Z13.1 Encounter for screening for diabetes mellitus
CPT/HCPCS: 36415; 80048; 80061; 84153; G0103

== ENCOUNTER 2023-05-24 21:37 | Emergency (ER) | payer OTHER, SELFPAY ==
[2023-05-24 21:37] VITALS: BP 126/80; PULSE 76; RESP 18; TEMP 36.1; O2SAT 98; BMI 27.1
[2023-05-24 21:50] VITALS: BP 143/93; PULSE 68; RESP 14; O2SAT 96
--- NOTE | 2023-05-24 22:07 | ED.VIS.GI ---
HPI HPI - GI History of Present Illness Chief Complaint: Abd Pain Informant: patient Abdominal Pain/Flank Pain Onset: Today and Hours Context: Sudden Onset Timing: Continuous Quality: Sharp and Stabbing Location: Epigastric and RUQ Current Severity: Mild Maximum Severity: Severe Nausea/Vomiting/Emesis GI Symptom: Positive for Nausea and Vomiting Onset: Today Severity: Mild Diarrhea/Melena/Hematochezia GI Symptom: Negative for Diarrhea Associated Symptoms Associated Symptoms: Negative for Dysuria, Frequency, Hematuria or Urgency Narrative Narrative: 51 male history of prior hernia repair. Prior diverticulosis, asthma and reflux. No recent illness. States tonight after eating dinner around 815 he had sudden onset epigastric abdominal pain that radiated a band around both sides of his abdomen. At the time it was severe. He had nausea and vomiting. No diarrhea. No fever. No dysuria. Has never had pain like this before this severe. Was brought in by squad. Given Zofran. Said his pain is much better now as is his nausea. Prior similar symptoms: Yes Recent Illness/Hospitalization: No PFSH PFSH Medical History Diverticulitis small intestine Home Medications NK 05/24/23 [History Last Taken Unknown] Allergy/AdvReac Type Severity Reaction Status Date / Time No Known Allergies Allergy Verified 05/24/23 21:41 Surgical History Admission for reversal of vasectomy S/P bilateral inguinal hernia repair S/P vasectomy S/P vasectomy Social History Smoking Status: Never smoker alcohol intake: current alcohol intake frequency: 3 or more drinks per day ROS ROS ED ROS Narrative No recent illness except for the abdominal pain with nausea and vomiting tonight. Review of Systems ROS Unobtainable: Denies due to encephalopathy Constitutional Constitutional ED: Denies chills or fever(s) ENT ENT ED: Denies ear pain Cardiovascular Cardiovascular: Denies chest pain Respiratory/Chest Respiratory/Chest: Denies cough Gastrointestinal Gastrointestinal: Reports abdominal pain, nausea and vomiting; Denies constipation, diarrhea or melena Genitourinary Genitourinary ED: Denies dysuria or hematuria Musculoskeletal Musculoskeletal: Denies arthralgias Integumentary Denies abscess Neurologic Neurologic: Denies headache(s) Psychiatric Psychiatric: Denies anxiety Endocrine Endocrinology: Denies polydipsia Hematologic/Lymphatic Hematologic/Lymphatic: Denies easy bleeding Allergic/Immunologic Allergic/Immunologic ED: Denies mouth swelling EXAM Physical Exam Narrative Exam Narrative: Well-appearing 52-year-old male. Significant other at bedside. Vital signs stable afebrile. H EENT exam unremarkable. Neck nontender no lymphadenopathy. Lungs clear to auscultation. Heart regular rhythm rate about 75 no murmur. Chest wall nontender. Abdomen soft nondistended normal bowel sounds no peritoneal signs. Mild epigastric right upper quadrant tenderness. No Banegas sign. No McBurney's point tenderness. No hernia. No mass. No pulsatile mass. No signs of obstruction. Moving all 4 extremities. Nontender no edema. Neurologically is awake alert with no focal motor deficits. Const Vital Signs: 05/24/23 21:37 05/24/23 21:50 05/24/23 23:20 Temperature 96.9 F L Temperature Source Temporal Pulse Rate 76 68 71 Respiratory Rate 18 14 16 Blood Pressure 126/80 H 143/93 H 119/74 Blood Pressure Mean 95 106 85 Pulse Ox 98 96 Oxygen Delivery Method Room Air Positive well nourished and well developed; Negative for cachectic, contractures or unkempt General Appearance ED: well developed and NAD; Negative for unkempt, cachectic, contractures or pallor Nutritional Appearance: Negative for cachectic HEENT Reports moist mucous membranes normocephalic and atraumatic; Negative for trauma or tenderness Eyes PERRL and EOMs intact bilaterally General Eye ED: Negative for pale conjunctiva or scleral icterus Neck no lymphadenopathy, supple and no JVD General: Negative for tenderness Carotids: Negative for other Resp normal respiratory effort and clear to auscultation bilaterally Effort and Inspection: Negative for respiratory distress Auscultation: Negative for rales, rhonchi or wheezes Cardio regular rate, regular rhythm, S1 normal heart sound, S2 normal heart sound and no murmurs Rate: Negative for bradycardia Rhythm: Negative for abnormal rhythm GI non-distended and no masses; Negative for non-tender Inspection: Negative for abdominal distention Auscultation: normoactive bowel sounds Palpation: soft and tender; Negative for guarding, rigid, hepatomegaly, splenomegaly, hernia, mass, pulsatile mass or rebound tenderness present Back/Spine no CVA tenderness General Back: Negative for CVA tenderness Cervical Spine: Negative for cervical spine tenderness Thoracic Spine / Upper Back: Negative for thoracic spinal tenderness Lumbar Spine / Lower Back: Negative for lumbar spinal tenderness Coccyx: Negative for other Extremity full ROM General Extremety ED: Negative for edema or tenderness General Extremity: Negative for edema Neuro CN's II-XII intact bilaterally and moves all extremities Sensorium / Orientation: alert, oriented to person, oriented to place and oriented to time; Negative for orientation impaired, confused, lethargic or stuporous Motor Exam: strength 5/5 throughout Psych mental status grossly normal and thought process normal Appearance: Negative for unkempt Attitude: No agitated Mood & Affect: Negative for depressed, anxious or tearful Skin no wounds General Skin Exam: Negative for jaundice or pallor Lesions: no lesions Rashes: no rashes Trauma: Negative for abrasion Nails: Negative for discolored MDM MDM MDM Narrative Medical decision making narrative: 52-year-old male epigastric right upper quadrant abdominal pain. May be reflux. Possibly pancreatitis. Possibly gallbladder disease. Does not appear to be cardiac in etiology. Patient feels much better currently. He does not want anything for nausea or pain at the current time. CAT scan and labs are being obtained. Repeat exam patient is doing well at 11:23 PM. I went over his test results of both he and his at bedside. Basically unremarkable. He has some slight inflammation of the sigmoid colon which is not consistent with his pain tonight. That may be chronic. He has a chronic elevated creatinine that is his baseline. We are obtaining a ultrasound of his gallbladder. Currently his abdomen is benign. Repeat exam patient is doing well at 12:35 AM. Abdomen is benign. We went over all his test results including his CAT scan and ultrasound. He will be discharged home. He has previously had upper and lower endoscopy. Follow-up with his primary care physician as needed. History & Record Review Discussion w/independent historian: Patient Lab Data Attestation: I reviewed the patient's lab results. Lab results narrative: CBC normal. White count at 6.8. H&H 14.6 and 44. Platelets 225. Electrolytes gap 11. BUN and creatinine is 17 and 1.4 is a history of an elevated creatinine. Liver enzymes are normal. Lipase is normal at 61. CT pelvis shows some thickening of the colon was made chronic. That is not consistent with his pain tonight. Troponin is 4. Labs: Laboratory Results - last 24 hr 05/24/23 05/24/23 22:05 22:05 WBC 6.8 RBC 5.14 Hgb 14.6 Hct 44.4 MCV 86.4 MCH 28.4 MCHC 32.9 RDW Std Deviation 39.4 RDW Coeff of Donte 12.6 Plt Count 225 MPV 10.3 Immature Gran % (Auto) 0.300 Neut % (Auto) 65.6 Lymph % (Auto) 24.7 Chambers % (Auto) 7.1 Eos % (Auto) 1.6 Baso % (Auto) 0.7 Absolute Neuts (auto) 4.4 Absolute Lymphs (auto) 1.67 Nucleated RBC % 0 Sodium 141 Potassium 3.8 Chloride 108 H Carbon Dioxide 22.0 Anion Gap 11 BUN 17 Creatinine 1.44 H Estim Creat Clear Calc 60.01 Est GFR (MDRD) Af Amer 66 Est GFR (MDRD) Non-Af 55 L BUN/Creatinine Ratio 11.8 Glucose 91 Calcium 9.4 Total Bilirubin 0.40 AST 14 L ALT 26 Alkaline Phosphatase 64 Troponin I High Sens 4 Total Protein 7.2 Albumin 3.7 Globulin 3.5 Albumin/Globulin Ratio 1.1 Lipase 61 Radiography Diagnostic Testing: Clinical Impression(s) from Imaging Studies Abdomen/Pelvis CT 05/24/23 22:17 IMPRESSION: Nodular thickening of the wall of the sigmoid colon without pericolonic inflammation. This may represent residual wall thickening from prior episode of colitis or less likely tumor. Correlate for clinical significance. Electronically Signed: Franki Gtz MD at 22:55 EDT Reading Location ID and State: [employer] / [place] Tel , Service support , Gallbladder Ultrasound 05/24/23 23:20 IMPRESSION: 1. Fatty steatosis. 2. Few small benign hepatic cysts. 3. Distended gallbladder but no stones or acute cholecystitis. Electronically Signed: Franki Gtz MD at 0:17 EDT , Gallbladder ultrasound showed a distended gallbladder but no signs of acute cholecystitis. No gallstones. No fluid or inflammation of the wall. Rhythm Strip Rhythm Strip: Sinus Rhythm Rate: 63 Ectopy: None EKG Initial EKG: Attestation: I personally reviewed and interpreted this EKG as follows: Interpretation: Sinus Rhythm and No Acute Injury Pattern Comments: Normal sinus rhythm rate of 63 no acute signs of SD, ischemia or dysrhythmia. Discharge Plan Triage Chief Complaint: Abd Pain ED Provider: Agustin Teixeira Dx/Rx/DC Orders Clinical Impression: Abdominal pain Instructions: Abdominal Pain Prescriptions: No Action NK Primary Care Provider: Ash Renee Referrals: Ash Renee MD [Primary Care Provider] - As Needed Activity Restrictions/Additional Instructions: Epigastric pain you had we do not have a specific cause. It could have been severe reflux or esophageal spasm. There is no signs currently of an ulcer. No signs of a bowel obstruction. No signs of gallbladder disease. The CAT scan and ultrasound your gallbladder were pretty much unremarkable. Follow-up with your doctor if not improving. Return if a lot worse. Disposition Disposition: Home, Self Care
--- NOTE | 2023-05-24 22:17 | CT_ITS ---
EXAM: CT ABDOMEN AND PELVIS WITH INTRAVENOUS CONTRAST CLINICAL INDICATION: upper abd pain TECHNIQUE: Helically acquired images were obtained of the abdomen and pelvis with intravenous contrast. CTDIvol = ( 15.59 ) mGy, DLP = ( 597.09 ) mGycm This CT exam was performed using one or more of the following dose reduction techniques: automated exposure control, adjustment of the mA and/or kV according to patient size, and/or use of iterative reconstruction technique. CONTRAST: 100ML OF ISOVUE 370 COMPARISON: No relevant prior studies available. FINDINGS: LOWER THORAX: Unremarkable. Lung bases are clear. No cardiomegaly. No significant pericardial effusion. ABDOMEN: LIVER: Unremarkable. Homogeneous. No focal mass. GALLBLADDER AND BILE DUCTS: Distended gallbladder. No gallstones. No other findings of acute cholecystitis. No intra- or extrahepatic biliary ductal dilation. PANCREAS: Unremarkable. No focal cystic or solid mass. SPLEEN: Unremarkable. Normal size without focal cystic or solid mass. ADRENALS: Unremarkable. No nodules. KIDNEYS AND URETERS: Few small scattered benign renal cysts bilaterally. Normal renal size and position. No hydronephrosis. STOMACH AND BOWEL: Nodular thickening of the wall of the sigmoid colon without pericolonic inflammation. This may represent residual wall thickening from prior episode of colitis or less likely tumor. No stomach or bowel distention. PELVIS: APPENDIX: No evidence of acute appendicitis. BLADDER: Unremarkable. REPRODUCTIVE: Unremarkable as visualized. No mass. ABDOMEN and PELVIS: INTRAPERITONEAL SPACE: Unremarkable. No ascites or other fluid collection. No free air. BONES/JOINTS: Unremarkable. No suspicious lytic or blastic abnormality. SOFT TISSUES: Unremarkable. No discrete abdominal or pelvic wall hernia. VASCULATURE: Unremarkable. Abdominal aorta is non-dilated. LYMPH NODES: Unremarkable. No enlarged lymph nodes. CT/Abdomen/Pelvis W IV Cont ONLY IMPRESSION: Nodular thickening of the wall of the sigmoid colon without pericolonic inflammation. This may represent residual wall thickening from prior episode of colitis or less likely tumor. Correlate for clinical significance. Electronically Signed: Franki Gtz MD at 22:55 EDT ,
[2023-05-24 22:25] LABS: Absolute Lymphocyte Count 1.67 X10^3/uL (0.83-4.51); Absolute Neutrophil Count 4.4 X10^3/uL (2.0-7.7); Basophil# 0.05 X10^3/uL; Basophil% 0.7 % (0-1); Eosinophil# 0.11 X10^3/uL; Eosinophils% 1.6 % (0-5); Hematocrit 44.4 % (40-54); Hemoglobin 14.6 g/dL (13.0-16.5); Lymphocyte # 1.67 X10^3/ul (0.83-4.51); Lymphocyte % 24.7 % (19-41); Mean Corp Hgb Conc 32.9 g/dL (32-36); Mean Corpuscular Hgb 28.4 pg (27.0-32.0); Mean Corpuscular Volume 86.4 fL (80-94); Mean Platelet Vol. 10.3 fl (6.2-12.0); Monocyte# 0.48 X10^3/uL; Monocyte% 7.1 % (0-10); NRBC Flagged by Analyzer 0 % (0-5); Neutrophil # 4.44 X10^3/uL (2.7-7.7); Neutrophil % 65.6 % (47-70); Platelet Count 225 K/mm3 (150-450); RBC Distribution Width CV 12.6 % (11.6-14.6); RBC Distribution Width SD 39.4 fl (35.1-43.9); Red Blood Count 5.14 M/mm3 (4.6-6.2); White Blood Count 6.8 K/mm3 (4.4-11.0)
[2023-05-24 22:52] LABS: ALB/GLOB Ratio 1.1 RATIO (0.9-2.4); AST(SGOT) 14 U/L (15-37); Alanine Aminotransfer ALT/SGPT 26 U/L (16-61); Albumin, Serum 3.7 g/dL (3.2-5.0); Alkaline Phosphatase 64 U/L (45-117); Anion Gap 11 (5-15); BUN 17 mg/dL (7-18); BUN/Creat Ratio 11.8 RATIO (10-20); Calcium,Total 9.4 mg/dL (8.5-10.1); Chloride 108 mmol/L (98-107); Creatinine, Serum 1.44 mg/dL (0.70-1.30); EST Glomerular Filtration Rate 55 mL/min (>60); Est Glom Filt Rate - Afr Amer 66 mL/min (>60); Estimated Creatinine Clearance 60.01 ml/min; Globulin 3.5 g/dL (2.2-4.2); Glucose 91 mg/dL (74-106); Lipase 61 U/L (13-75); Potassium 3.8 mmol/L (3.5-5.1); Protein, Total 7.2 g/dL (6.4-8.2); Sodium Level 141 mmol/L (136-145); Troponin-I HS 4 pg/mL (3.0-78.0)
[2023-05-24 23:20] VITALS: BP 119/74; PULSE 71; RESP 16
--- NOTE | 2023-05-24 23:20 | US_ITS ---
EXAM: US ABDOMEN LIMITED, RIGHT UPPER QUADRANT CLINICAL INDICATION: RT ABD PAIN TECHNIQUE: Real-time ultrasound of the right upper quadrant with image documentation. COMPARISON: No relevant prior studies available. FINDINGS: LIVER: Echogenic liver with no focal masses. Liver is normal in size. Right hepatic cysts measuring up to 6 mm. No intrahepatic biliary ductal dilation. GALLBLADDER: Distended gallbladder but no stones or acute cholecystitis. Sonographic Banegas''s sign is absent. No gallbladder wall thickening is demonstrated. No pericholecystic fluid. COMMON BILE DUCT: Unremarkable as visualized. The proximal common bile duct is within normal limits for the patient''s age. PANCREAS: Pancreatic tail was not visualized. Remaining pancreas is unremarkable. RIGHT KIDNEY: Right kidney is normal. There is no hydronephrosis. No shadowing calculus. No focal lesion or perinephric collection is demonstrated. FREE FLUID: No ascites. US/Gallbladder IMPRESSION: 1. Fatty steatosis. 2. Few small benign hepatic cysts. 3. Distended gallbladder but no stones or acute cholecystitis. Electronically Signed: Franki Gtz MD at 0:17 EDT ,
== END 2023-05-25 00:44 | disposition home or self-care (01) ==
PROVIDERS: Emergency Provider Emergency Medicine; PCP Family Medicine; Visit Provider Emergency Medicine
DX: R10.9 Unspecified abdominal pain (principal); Z98.52 Vasectomy status
CPT/HCPCS: 74177; 76705; 80053; 83690; 84484; 85025; 93005; 99285; Q9967; A4216

== ENCOUNTER 2025-06-15 13:41 | Emergency (ER) | payer OTHER, SELFPAY ==
[2025-06-15 13:42] VITALS: BP 149/96; PULSE 73; RESP 16; TEMP 36.6; O2SAT 98; BMI 26.1
--- NOTE | 2025-06-15 15:09 | EX.ED.VIS.UR ---
HPI HPI - URI History of Present Illness Chief Complaint: Nosebleed Informant: patient Onset/Context/Timing Onset: Days Context: Sudden Onset Timing: Intermittent Current Severity: Mild Maximum Severity: Moderate Narrative Narrative: 54-year-old male no C[facility] past medical history. No prior knee surgery. Has had multiple nosebleeds since Saturday. Primarily right-sided. At times left also. Prior incident about 4 to 5 years ago. No specific cause. He is on no medications and no blood thinners. Not even aspirin. He was seen by ENT there today cauterized. He was cauterized again this morning. Had recurrent bleed. Denies any trauma. No bruising. No hematuria. No melena. Prior similar symptoms: Yes Recent Illness/Hospitalization: No ROS ROS ED ROS Narrative Denies recent illness. Constitutional Constitutional ED: Denies chills or fever(s) Eyes Eyes: Denies blurry vision ENT ENT ED: Denies ear pain or rhinorrhea Cardiovascular Cardiovascular: Denies chest pain Respiratory/Chest Respiratory/Chest: Denies cough or dyspnea Gastrointestinal Gastrointestinal: Denies abdominal pain Genitourinary Genitourinary ED: Denies dysuria or hematuria Musculoskeletal Musculoskeletal: Denies arthralgias or back pain Integumentary Denies abscess Neurologic Neurologic: Denies headache(s) Psychiatric Psychiatric: Denies anxiety or depression Endocrine Endocrinology: Denies cold intolerance Hematologic/Lymphatic Hematologic/Lymphatic: Denies easy bleeding, easy bruising or lymphadenopathy Allergic/Immunologic Allergic/Immunologic ED: Denies mouth swelling, tongue swelling or urticaria PFSH PFSH Medical History Diverticulitis small intestine Home Medications ?Medication ?Instructions ?Recorded ?Last Taken ?Type amoxicillin 500 mg capsule 500 mg PO BID 5 days #10 caps 06/15/25 Unknown Rx Allergy/AdvReac Type Severity Reaction Status Date / Time No Known Allergies Allergy Verified 06/15/25 13:48 Surgical History S/P bilateral inguinal hernia repair S/P vasectomy Admission for reversal of vasectomy S/P vasectomy Social History Smoking Status: Never smoker alcohol intake: current alcohol intake frequency: 3 or more drinks per day EXAM Physical Exam Narrative Exam Narrative: 54-year-old male no acute distress vital signs stable afebrile. H EENT exam currently no active bleeding. Dried blood right naris. Posterior pharynx unremarkable. Neck nontender no lymphadenopathy. Lungs clear. Heart regular rhythm rate about 70 no murmur. Chest wall ribs nontender. Abdomen soft nontender. No inguinal axillary lymphadenopathy. Moving all 4 extremities. Nontender no edema. No bruising. Back nontender. He is awake alert. Answering questions following commands. Const Vital Signs: 06/15/25 13:42 06/15/25 17:07 Temperature 97.8 F Temperature Source Temporal Pulse Rate 73 72 Respiratory Rate 16 16 Blood Pressure 149/96 H 136/89 H Blood Pressure Mean 113 104 Pulse Ox 98 100 Oxygen Delivery Method Room Air Room Air Positive well developed; Negative for obese, cachectic or contractures General Appearance ED: well developed and NAD; Negative for cachectic, contractures, cyanotic, diaphoretic or pallor Nutritional Appearance: Negative for cachectic or obese HEENT Reports moist mucous membranes HEENT Narrative: Dried blood right naris. normocephalic and atraumatic Throat: posterior oropharynx normal Neck no lymphadenopathy, supple, no meningeal signs and no JVD General: Negative for anterior neck swelling or lymphadenopathy Resp normal respiratory effort and clear to auscultation bilaterally Cardio S1 normal heart sound, S2 normal heart sound and no murmurs Rate: regular rate Rhythm: regular rhythm GI non-tender, non-distended and no masses Back/Spine no CVA tenderness and normal ROM Extremity normal to inspection and full ROM General Extremety ED: Negative for cyanosis or tenderness General Extremity: Negative for cyanosis Neuro oriented x3 and CN's II-XII intact bilaterally Sensorium / Orientation: alert, oriented to person, oriented to place and oriented to time; Negative for orientation impaired, lethargic or stuporous Motor Exam: strength 5/5 throughout Psych mental status grossly normal Skin General Skin Exam: Negative for jaundice or pallor Lesions: no lesions Rashes: no rashes MDM MDM MDM Narrative Medical decision making narrative: 54-year-old male recurrent frequent nosebleeds last several days. Afrin nasal spray soaked cottonball to be placed in both naris. Hide the patient blow his nose. Clots came out the right. No bleeding from the left. Both sides have been cauterized by ENT. There was 1 site of fresh blood on the right anterior nose. Right nose was packed using a Merocel pack coated with antibiotic ointment. Patient was ambulated up and down the hallway. He had no further bleeding. He did sit in the emergency department prior to packing with Afrin soaked cotton balls in both sides of his nose for 15 to 20 minutes. He will be discharged to home. Amoxicillin twice a day till the packing comes out. Follow-up with ENT his appointment this Saturday. History & Record Review Additional record(s) reviewed:: Prior inpatient record, Prior outpatient record, Prior ED visit and Prior labs Procedures Other Procedures Procedure(s): Right anterior nasal pack placed in his right naris. Nose blown. Clots removed. Prior cauterization by ENT. Afrin soaked cotton balls to both sides of his nose for 15 to 20 minutes. Bleeding resolved. Anterior Merisel pack placed in his right nares. Ambulated no further bleeding. Patient was instructed on recurrent bleeds and what to do. He has appointment to see ENT on Saturday. Discharge Plan Triage Chief Complaint: Nosebleed ED Provider: Agustin Teixeira Dx/Rx/DC Orders Clinical Impression: Anterior epistaxis Instructions: ED Epistaxis (Adult) Prescriptions: New amoxicillin 500 mg capsule 500 mg PO BID 5 Days Qty: 10 0RF Primary Care Provider: sAh Renee Referrals: James Tiwari MD [Med Staff - Active Staff] - 3-5 Days Ash Renee MD [Primary Care Provider] - Activity Restrictions/Additional Instructions: If rebleeds, then hold direct pressure for 20 to 30 minutes and ice. If you are unable to get stopped this return. Follow-up with ENT at the packing out. Amoxicillin twice a day until the packing comes out once the packing is out you can stop the antibiotic. Print Language: [place] Disposition Disposition: Home, Self Care
[2025-06-15 17:07] VITALS: BP 136/89; PULSE 72; RESP 16; O2SAT 100
[2025-06-15] MEDS: Oxymetazoline 0.05% 1 SPRAY SPRAY.BTL 2 SPRAY NASAL ×2 (17:12→18:43)
[2025-06-15 17:14] VITALS: BP 136/89; PULSE 72; RESP 16; TEMP 36.6; O2SAT 100
[2025-06-15 18:44] VITALS: BP 127/98; PULSE 83; RESP 16
[2025-06-15 20:38] VITALS: BP 128/96; PULSE 82; RESP 16; O2SAT 98
[2025-06-15 20:39] LABS: Hematocrit 43.9 % (40-54); Hemoglobin 15.4 g/dL (13.0-16.5); Mean Corp Hgb Conc 35.1 g/dL (32-36); Mean Corpuscular Volume 85.9 fL (80-94); Mean Platelet Vol. 10.3 fl (6.2-12.0); Platelet Count 217 K/mm3 (150-450); RBC Distribution Width CV 12.9 % (11.6-14.6); RBC Distribution Width SD 40.4 fl (35.1-43.9); Red Blood Count 5.11 M/mm3 (4.6-6.2); White Blood Count 11.6 K/mm3 (4.4-11.0)
[2025-06-15] MEDS: Ketorolac 30 MG/ML Syringe IV (20:48)
[2025-06-15 21:21] LABS: Anion Gap 15 (5-15); BUN 17 mg/dL (4-19); BUN/Creat Ratio 13.2 RATIO (10-20); Calcium,Total 9.6 mg/dL (7.6-11.0); Carbon Dioxide 21.7 mmol/L (21.0-32.0); Chloride 100 mmol/L (98-108); Estimated Creatinine Clearance 67.02 ml/min (50-250); Glucose 94 mg/dL (70-99); Potassium 4.3 mmol/L (3.3-5.1)
[2025-06-15 22:00] VITALS: BP 149/82; PULSE 98; RESP 16; TEMP 36.8; O2SAT 99
--- OUTSIDE RECORDS SUMMARY | 2025-06-15 22:13 | XMS RPT_ITS | CCD ---
Author Organization [facility] Inform ion Partnership [facility] Care Team Providers Care Diabetes Trainer Name Role Phone Bg Costelol Unavailable Unavailable PROVIDER, UNKNOWN Unavailable Unavailable Vahe Turner Unavailable Unavailabl e Unavailable Primary Care Provider Unavailabl e Steve Nj Attending Unavailable Ash Renee Primary Care Unavailable Ash Renee Primary Care Unavailable Agustin Teixeira Attending Unavailable Víctor MAE, Dr. Aleman Primary Care Provider [phone] Dr. Agustin Teixeira MD Emergency Provider Medications Current Medications Medication Drug Class(es) Dates Sig (Normalized) Sig (Original) [id number] 200 actuat albuterol 0.09 mg/actuat metered dose inhaler (1 source) beta2-Adrenergic Agonist Start: 10-13-2019 take 1 puff(s) by inhalation every four hours as needed Albuterol Sulfate Active 1 - 2 PUFF INHALATION EVERY 4 HOURS NEEDED October 13, 2019 12:02pm amoxicillin 500 mg oral capsule (3 sources) Penicillin-class Antibacterial Start: 06-15-2025 take 1 capsule by mouth twice daily Amoxicillin 500 mg capsule Active 500 mg PO TWICE A DAY 10 5 0 June 15, 2025 12:00am Start: 05-27-2017 take 1 tablet by sana twice daily Amoxicillin* ([id number] MG) 875 MG TABLET Active 875 MG PO 2 TIMES DAILY May 27, 2017 10:33am Start: 07-05-2016 End: 10-04-2016 take 1 tablet by mouth twice daily Amoxicillin* ([id number] MG) 875 MG TABLET Discontinued 875 MG PO 2 TIMES DAILY July 05, 2016 10:20am October 04, 2016 12:03am cetirizine hydrochloride 10 mg oral capsule (1 source) Histamine-1 Receptor Antagonist Start: 09-24-2019 take 1 capsule by mouth once daily Cetirizine (Zyrtec) 10 mg capsule Active 10 MG PO DAILY September 24, 2019 1:46pm GuaiFENesin/PSEUDOEP HEDRNE HCL (MUCINEX D ER T1 EACH) 1 EACH TAB.ER.12H (1 source) Start: 05-27-2017 GuaiFENesin/PSEUDO EPHEDRNE HCL (MUCINEX D ER T1 EACH) 1 EACH TAB.ER.12H Active 1 TAB.SA PO EVERY DAY May 27, 2017 10:33am pantoprazole 40 mg delayed release oral tablet (1 source) Proton Pump Inhibitor Start: 07-31-2018 take 40 mg by mouth once daily Pantoprazole Active 40 MG PO DAILY July 31, 2018 11:00am tamsulosin hydrochloride 0.4 mg oral capsule (3 sources) alpha-Adrenergic Liu Start: 11-05-2019 take 1 capsule by mouth once daily Tamsulosin (Flomax) 0.4 mg capsule Active 0.4 MG PO DAILY November 05, 2019 3:10pm Start: 07-31-2018 End: 09-24-2019 take 0.4 mg by mouth once daily Tamsulosin Discontinued 0.4 MG PO DAILY July 31, 2018 11:00am September 24, 2019 1:46pm Completed/Discontinued Medications Medication Drug Class(es) Dates Sig (Normalized) Sig (Original) acetaminophen 325 mg / oxyCODONE hydrochloride 5 mg oral tablet (2 sources) Opioid Agonist Start: 10-22-2019 End: 10-29-2019 Oxycodone-Acetamino phen 1 TABLET tablet Discontinued 1 - 2 {tbl} PO EVERY 4 HOURS NEEDED as needed for Pain 10 4 0 October 22, 2019 October 25, 2019 1:00am October 29, 2019 1:08am Left inguinal hernia Start: 10-22-2019 End: 10-29-2019 take 1 tablet by mouth every four hours as needed Oxycodone-Acetaminophen Discontinued 1 - 2 TABLET PO EVERY 4 HOURS NEEDED 10 4 October 22, 2019 11:07am October 29, 2019 1:08am amoxicillin 875 mg / clavulanate 125 mg oral tablet (1 source) Penicillin-class Antibacterial Start: 03-05-2024 End: 06-15-2025 Amoxicillin-Pot Clavulanate 875-125 mg tablet Discontinued 1 {tbl} PO Q12H 14 0 March 05, 2024 12:00am June 15, 2025 2:52pm 12 hr dextromethorphan hydrobromide 30 mg / guaiFENesin 600 mg extended release oral tablet (1 source) Uncompetitive K-wqwhkl-S-aspartate Receptor Antagonist, Sigma-1 Agonist Start: 03-05-2024 End: 06-15-2025 Dextromethorphan-Guai fenesin 30-600 mg tablet extended release 12 hr Discontinued 1 {tbl} PO Q12H as needed for cough 24 0 March 05, 2024 12:00am June 15, 2025 2:52pm Problems Problem Classification Problem Date Documented Da te Episodic/Chronic Abdominal hernia (2 sources) Left inguinal hernia ; Translations: [Unilateral inguinal hernia, without obstruction or gangrene, not specified as recurrent] 10-22-2019 Episodic Abdominal pain (2 sources) Unspecified abdominal pain; Translations: [Abdominal pain] Onset: 05-28-2023 06-02-2023 Episodic Esophageal disorders (2 sources) Gastro-esophageal reflux disease without esophagitis; Translations: [Gastro-esophageal reflux disease without esophagitis] Onset: 07-31-2018 Chronic Other gastrointestinal disorders (2 sources) Personal history of other diseases of the digestive system; Translations: [Personal history of other diseases of the digestive system] Onset: 07-31-2018 Episodic Other upper respiratory disease (2 sources) Epistaxis; Translations: [Epistaxis] Onset: 07-31-2018 Episodic Other upper respiratory disease (3 sources) Anterior epistaxis; Translations: [Epistaxis] 08-01-2018 Episodic Other upper respiratory infections (2 sources) Acute sinusitis, unspecified; Translations: [Acute sinusitis] Onset: 03-05-2024 03-05-2024 Episodic Results Test Name Value Interpretation Reference Range Facility Office Visit Reporton 2023 Office Visit Report [facility] [address] [place] [address] OFFICE VISIT Date of Service: 03/05/24 MR#: [id number] Acct: [id number] Patient: HAKEEM JERRY Rep #: [id number] : 1970 Provider: DUKE José Age/Sex: 53/M [place] [facility] [place]: Signed Intake Vital Signs 05/24/23 21:37 Height 1.75 m Intake Visit Reasons: Sinus Pressure/Post Nasal Drip Chief Complaint: sinus infection Allergies No Known Allergies Allergy (Verified 05/24/23 21:41) [facility] Medical History Diverticulitis small intestine Surgical History Admission for reversal of vasectomy S/P bilateral inguinal hernia repair S/P vasectomy S/P vasectomy Social History Smoking Status: Never smoker alcohol intake: current alcohol intake frequency: 3 or more drinks per day HPI HPI Chief Complaint: sinus infection Details: HAKEEM JERRY, is a 53 M who presents to virtual visit today for sinus infection. He has been sick 2 weeks. He has sinus pressure especially the frontal sinus, runny nose, headache, congestion, and copious post nasal drainage. He notes the drainage has become more yellow / orange. Mild cough without SOB. He states this is not like bronchitis which he has had before. No N/V/D. He does get hot sweats at night, occurred about 3 x this week. ROS Const Constitutional: Positive for headache(s) and night sweats; No fever(s) ENT ENT: Positive for nasal congestion, sinus pressure, nasal discharge, post nasal drip and headache(s); No ear pressure Resp Respiratory: Positive for cough; No shortness of breath or wheezing Gastro GI: No diarrhea, nausea/dyspepsia or vomiting Neuro Neurology: Positive for headache(s) Aller/Imm Allergy/Immunologic: No wheezing Exam Const General: cooperative, healthy appearing, comfortable, no acute distress, well developed and well groomed Nutritional Appearance: average body habitus and well nourished Orientation: alert, awake and oriented x3 [facility] Head: normocephalic and atraumatic Face and sinus: sinus tenderness frontal Resp Effort Inspection: normal respiratory effort, able to speak in complete sentences, symmetric chest movement and no cough Coding Level of Care Code Off vis,new,level 3 Diagnoses Acute sinusitis J01.90 Assessment and Plan Assessment and Plan (1) Acute sinusitis: Status: Acute Plan: Sick x 2 weeks. Start amox/clav, mucinex, flonase, netti pots. No chronic medical issues/medication use Disclaimer: This visit was performed virtually via live audio and video at the request of the patient. As such the physical exam and testing is limited by what is able to be seen through the patient's camera and lighting which may vary in quality, and limited by what the patient is able to perform via clinician instruction. If there is no significant improvement or new complications, the patient should follow up [id number] with a clinician of the appropriate level of care. Medications: New amoxicillin-pot clavulanate 875-125 mg 1 TAB PO Q12H 14 tabs 0RF dextromethorphan-guaifenesin 30-600 mg 1 TAB PO Q12H PRN 24 tabs 0RF cough 03/05/24 1056 Date Steve Светлана Contreras Signature: Date (if applicable) CC: Normal [facility] Abdomen/Pelvis W IV Cont ONL Yon 05-25-2023 Abdomen/Pelvis W IV Cont ONLY [facility] Imaging Services [address] [place] [address] Abdomen/Pelvis W IV Cont ONLY MR#: [id number] Acct: [id number] Name: HAKEEM JERRY Rep #: [id number] : 1970 52 From: Franki Gtz MD PCP: Dr. Ash Renee MD Status: [facility] Study: Abdomen/Pelvis W IV Cont ONLY Date of Exam: Exam# [id number] Ordering Dr: Agustin Teixeira MD EXAM: CT ABDOMEN AND PELVIS WITH INTRAVENOUS CONTRAST CLINICAL INDICATION: upper abd pain TECHNIQUE: Helically acquired images were obtained of the abdomen and pelvis with intravenous contrast. CTDIvol = ( 15.59 ) mGy, DLP = ( 597.09 ) mGycm This CT exam was performed using one or more of the following dose reduction techniques: automated exposure control, adjustment of the mA and/or kV according to patient size, and/or use of iterative reconstruction technique. CONTRAST: 100ML OF ISOVUE 370 COMPARISON: No relevant prior studies available. FINDINGS: LOWER THORAX: Unremarkable. Lung bases are clear. No cardiomegaly. No significant pericardial effusion. ABDOMEN: LIVER: Unremarkable. Homogeneous. No focal mass. GALLBLADDER AND BILE DUCTS: Distended gallbladder. No gallstones. No other findings of acute cholecystitis. No intra- or extrahepatic biliary ductal dilation. PANCREAS: Unremarkable. No focal cystic or solid mass. SPLEEN: Unremarkable. Normal size without focal cystic or solid mass. ADRENALS: Unremarkable. No nodules. KIDNEYS AND URETERS: Few small scattered benign renal cysts bilaterally. Normal renal size and position. No hydronephrosis. STOMACH AND BOWEL: Nodular thickening of the wall of the sigmoid colon without pericolonic inflammation. This may represent residual wall thickening from prior episode of colitis or less likely tumor. No stomach or bowel distention. PELVIS: APPENDIX: No evidence of acute appendicitis. BLADDER: Unremarkable. REPRODUCTIVE: Unremarkable as visualized. No mass. ABDOMEN and PELVIS: INTRAPERITONEAL SPACE: Unremarkable. No ascites or other fluid collection. No free air. BONES/JOINTS: Unremarkable. No suspicious lytic or blastic abnormality. SOFT TISSUES: Unremarkable. No discrete abdominal or pelvic wall hernia. VASCULATURE: Unremarkable. Abdominal aorta is non-dilated. LYMPH NODES: Unremarkable. No enlarged lymph nodes. CT/Abdomen/Pelvis W IV Cont ONLY IMPRESSION: Nodular thickening of the wall of the sigmoid colon without pericolonic inflammation. This may represent residual wall thickening from prior episode of colitis or less likely tumor. Correlate for clinical significance. Electronically Signed: Franki Gtz MD at 22:55 EDT , CC: Dr. Ash Renee MD; Dr. Agustin Teixeira MD Public Address Systems Mechanic: Signed Normal [facility] CBC W/Diff, Automatedon 05-03 Absolute Lymph 1.67 X10 3/uL Normal 0.83-4.51 [facility] Comment on above: Performed By: #### L100.0100 #### [facility] [address] [place], [place] [address], [address] Absolute Neut 4.4 X10 3/uL Normal 2.0-7.7 [facility] Comment on above: Performed By: #### L100.0100 #### [facility] [address] [place], [address] Basophils/100 WBC (Bld) 0.7 % Normal 0-1 [facility] Comment on above: Performed By: #### L100.0100 #### [facility] [address] [place], [address] Eosinophils/10 0 WBC (Bld) 1.6 % Normal 0-5 [facility] Comment on above: Performed By: #### L100.0100 #### [facility] [address] [place], [address] Erythrocyte distribution width (RBC) [Ratio] 12.6 % Normal 11.6-14.6 [facility] Comment on above: Performed By: #### L100.0100 #### [facility] [address] [place], [address] Hematocrit (Bld) [Volume fraction] 44.4 % Normal 40-54 [facility] Comment on above: Performed By: #### L100.0100 #### [facility] [address] [place], [address] Hemoglobin (Bld) [Mass/Vol] 14.6 g/dL Normal 13.0-16.5 [facility] Comment on above: Performed By: #### L100.0100 #### [facility] [address] [place], [address] IG% 0.300 Normal 0.0-0.9 [facility] Comment on above: Result Comment: IG% - Immature Granulocy jeremiah (promyelocytes, myelocytes and metamyelocytes) > 1% indicates that a LEFT SHIFT is Present. Performed By: #### L 100.0100 #### [facility] [address] [place], [address] Lymphocytes/10 0 WBC (Bld) 24.7 % Normal 19-41 [facility] Comment on above: Performed By: #### L100.0100 #### [facility] [address] [place], [address] MCH (RBC) [Entitic mass] 28.4 pg Normal 27.0-32.0 [facility] Comment on above: Performed By: #### L100.0100 #### [facility] [address] [place], [address] MCHC (RBC) [Mass/Vol] 32.9 g/dL Normal 32-36 [facility] Comment on above: Performed By: #### L100.0100 #### [facility] [address] [place], [address] MCV (RBC) [Entitic vol] 86.4 fL Normal 80-94 [facility] Comment on above: Performed By: #### L100.0100 #### [facility] [address] [place], [address] Monocytes/100 WBC (Bld) 7.1 % Normal 0-10 [facility] Comment on above: Performed By: #### L100.0100 #### [facility] [address] [place], [address] Neutrophils/10 0 WBC (Bld) 65.6 % Normal 47-70 [facility] Comment on above: Performed By: #### L100.0100 #### [facility] [address] [place], [address] Nucleated RBC (Bld) [#/Vol] 0 10*3/uL Normal 0-5 [facility] Comment on above: Performed By: #### L100.0100 #### [facility] [address] [place], [address] Platelet mean volume (Bld) [Entitic vol] 10.3 fL Normal 6.2-12.0 [facility] Comment on above: Performed By: #### L100.0100 #### [facility] [address] [place], [address] Platelets (Bld) [#/Vol] 225 10*3/uL Normal 150-450 [facility] Comment on above: Performed By: #### L100.0100 #### [facility] [address] [place], [address] RBC (Bld) [#/Vol] 5.14 10*6/uL Normal 4.6-6.2 [facility] Comment on above: Performed By: #### L100.0100 #### [facility] [address] [place], [address] RDW SD 39.4 fl Normal 35.1-43.9 [facility] Comment on above: Performed By: #### L100.0100 #### [facility] [address] [place], [address] WBC (Bld) [#/Vol] 6.8 10*3/uL Normal 4.4-11.0 [facility] Comment on above: Performed By: #### L100.0100 #### [facility] [address] [place], [address] Comprehensive Metabolic Prof [facility] 05-25-2023 Albumin [Mass/Vol] 3.7 g/dL Normal 3.2-5.0 [facility] Comment on above: Order Comment: 'TROP' Serial specimen #1 , #2 or #3: 1 Performed By: #### L 500.4050, L501.4020, L501.2450 #### [facility] [address] [place], [address] Albumin/Globul in [Mass ratio] 1.1 {ratio} Normal 0.9-2.4 [facility] Comment on above: Order Comment: 'TROP' Serial specimen #1 , #2 or #3: 1 Performed By: #### L 500.4050, L501.4020, L501.2450 #### [facility] [address] [place], [address] ALK P 64 U/L Normal 45-117 [facility] Comment on above: Order Comment: 'TROP' Serial specimen #1 , #2 or #3: 1 Performed By: #### L 500.4050, L501.4020, L501.2450 #### [facility] [address] [place], [address] ALT [Catalytic activity/Vol] 26 U/L Normal 16-61 [facility] Comment on above: Order Comment: 'TROP' Serial specimen #1 , #2 or #3: 1 Performed By: #### L 500.4050, L501.4020, L501.2450 #### [facility] [address] [place], [address] AST [Catalytic activity/Vol] 14 U/L Low 15-37 [facility] Comment on above: Order Comment: 'TROP' Serial specimen #1 , #2 or #3: 1 Performed By: #### L 500.4050, L501.4020, L501.2450 #### [facility] [address] [place], [address] Bilirubin [Mass/Vol] 0.40 mg/dL Normal 0.20-1.00 [facility] Comment on above: Order Comment: 'TROP' Serial specimen #1 , #2 or #3: 1 Result Comment: For patients on eltrombopag therapy, use of Dimension [place] TBIL is not recommended. Performed By: #### L 500.4050, L501.4020, L501.2450 #### [facility] [address] [place], [address] BUN/CRE 11.8 RATIO Normal 10-20 [facility] Comment on above: Order Comment: 'TROP' Serial specimen #1 , #2 or #3: 1 Performed By: #### L 500.4050, L501.4020, L501.2450 #### [facility] [address] [place], [address] CA,Total 9.4 mg/dL Normal 8.5-10.1 [facility] Comment on above: Order Comment: 'TROP' Serial specimen #1 , #2 or #3: 1 Performed By: #### L 500.4050, L501.4020, L501.2450 #### [facility] [address] [place], [address] Chloride [Moles/Vol] 108 mmol/L High 98-107 [facility] Comment on above: Order Comment: 'TROP' Serial specimen #1 , #2 or #3: 1 Performed By: #### L 500.4050, L501.4020, L501.2450 #### [facility] [address] [place], [address] CO2 [Moles/Vol] 22.0 mmol/L Normal 21.0-32.0 [facility] Comment on above: Order Comment: 'TROP' Serial specimen #1 , #2 or #3: 1 Performed By: #### L 500.4050, L501.4020, L501.2450 #### [facility] [address] [place], [address] Creatinine [Mass/Vol] 1.44 mg/dL High 0.70-1.30 [facility] Comment on above: Order Comment: 'TROP' Serial specimen #1 , #2 or #3: 1 Result Comment: The validity of the calculated GFR GFRAA in patients over 70 years has not been determined. Clinical correlation is essential. Performed By: #### L 500.4050, L501.4020, L501.2450 #### [facility] [address] [place], [address] ECRCL 60.01 ml/min Normal [facility] Comment on above: Order Comment: 'TROP' Serial specimen #1 , #2 or #3: 1 Performed By: #### L 500.4050, L501.4020, L501.2450 #### [facility] [address] [place], [address] EST GFR - AA 66 mL/min Normal >60 [facility] Comment on above: Order Comment: 'TROP' Serial specimen #1 , #2 or #3: 1 Result Comment: Afri can Lebanese GFR Calc Performed By: #### L 500.4050, L501.4020, L501.2450 #### [facility] [address] [place], [address] GAP 11 Normal 5-15 [facility] Comment on above: Order Comment: 'TROP' Serial specimen #1 , #2 or #3: 1 Performed By: #### L 500.4050, L501.4020, L501.2450 #### [facility] [address] [place], [address] GFR/1.73 sq M.predicted among non-blacks MDRD (S/P/Bld) [Vol rate/Area] 55 mL/min/{1.73_m2} Low >60 [facility] Comment on above: Order Comment: 'TROP' Serial specimen #1 , #2 or #3: 1 Result Comment: Non- GFR Calc Performed By: #### L 500.4050, L501.4020, L501.2450 #### [facility] [address] [place], [address] Globulin (S) [Mass/Vol] 3.5 g/dL Normal 2.2-4.2 [facility] Comment on above: Order Comment: 'TROP' Serial specimen #1 , #2 or #3: 1 Performed By: #### L 500.4050, L501.4020, L501.2450 #### [facility] [address] [place], [address] Glucose [Mass/Vol] 91 mg/dL Normal 74-106 [facility] Comment on above: Order Comment: 'TROP' Serial specimen #1 , #2 or #3: 1 Performed By: #### L 500.4050, L501.4020, L501.2450 #### [facility] [address] [place], [address] Potassium [Moles/Vol] 3.8 mmol/L Normal 3.5-5.1 [facility] Comment on above: Order Comment: 'TROP' Serial specimen #1 , #2 or #3: 1 Performed By: #### L 500.4050, L501.4020, L501.2450 #### [facility] [address] [place], [address] Sodium [Moles/Vol] 141 mmol/L Normal 136-145 [facility] Comment on above: Order Comment: 'TROP' Serial specimen #1 , #2 or #3: 1 Performed By: #### L 500.4050, L501.4020, L501.2450 #### [facility] [address] [place], [address] T PROT 7.2 g/dL Normal 6.4-8.2 [facility] Comment on above: Order Comment: 'TROP' Serial specimen #1 , #2 or #3: 1 Performed By: #### L 500.4050, L501.4020, L501.2450 #### [facility] [address] [place], [address] Urea nitrogen [Mass/Vol] 17 mg/dL Normal 7-18 [facility] Comment on above: Order Comment: 'TROP' Serial specimen #1 , #2 or #3: 1 Performed By: #### L 500.4050, L501.4020, L501.2450 #### [facility] [address] [place], [address] Emergency Department Summary on 05-25-2023 Emergency Department Summary [facility] Medical Records Department [address] [place] [address] Emergency Department Summary 05/24/23 MR#: [id number] Acct: [id number] Name: HAKEEM JERRY Rep #: [id number] : 1970 52 From: Agustin Teixeira MD PCP: Dr. Ash Renee MD Status:REG ER Location: ED HPI HPI - GI History of Present Illness Chief Complaint: Abd Pain Informant: patient Abdominal Pain/Flank Pain Onset: Today and Hours Context: Sudden Onset Timing: Continuous Quality: Sharp and Stabbing Location: Epigastric and RUQ Current Severity: Mild Maximum Severity: Severe Nausea/Vomiting/Emesis GI Symptom: Positive for Nausea and Vomiting Onset: Today Severity: Mild Diarrhea/Melena/Hematochezia GI Symptom: Negative for Diarrhea Associated Symptoms Associated Symptoms: Negative for Dysuria, Frequency, Hematuria or Urgency Narrative Narrative: 51 male history of prior hernia repair. Prior diverticulosis, asthma and reflux. No recent illness. States tonight after eating dinner around 815 he had sudden onset epigastric abdominal pain that radiated a band around both sides of his abdomen. At the time it was severe. He had nausea and vomiting. No diarrhea. No fever. No dysuria. Has never had pain like this before this severe. Was brought in by squad. Given Zofran. Said his pain is much better now as is his nausea. Prior similar symptoms: Yes Recent Illness/Hospitalization: No PFSH PFSH Medical History Diverticulitis small intestine Home Medications NK 05/24/23 [History Last Taken Unknown] Allergy/AdvReac Type Severity Reaction Status Date / Time No Known Allergies Allergy Verified 05/24/23 21:41 Surgical History Admission for reversal of vasectomy S/P bilateral inguinal hernia repair S/P vasectomy S/P vasectomy Social History Smoking Status: Never smoker alcohol intake: current alcohol intake frequency: 3 or more drinks per day ROS ROS ED ROS Narrative No recent illness except for the abdominal pain with nausea and vomiting tonight. Review of Systems ROS Unobtainable: Denies due to encephalopathy Constitutional Constitutional ED: Denies chills or fever(s) ENT ENT ED: Denies ear pain Cardiovascular Cardiovascular: Denies chest pain Respiratory/Chest Respiratory/Chest: Denies cough Gastrointestinal Gastrointestinal: Reports abdominal pain, nausea and vomiting; Denies constipation, diarrhea or melena Genitourinary Genitourinary ED: Denies dysuria or hematuria Musculoskeletal Musculoskeletal: Denies arthralgias Integumentary Denies abscess Neurologic Neurologic: Denies headache(s) Psychiatric Psychiatric: Denies anxiety Endocrine Endocrinology: Denies polydipsia Hematologic/Lymphatic Hematologic/Lymphatic: Denies easy bleeding Allergic/Immunologic Allergic/Immunologic ED: Denies mouth swelling EXAM Physical Exam Narrative Exam Narrative: Well-appearing 52-year-old male. Significant other at bedside. Vital signs stable afebrile. H EENT exam unremarkable. Neck nontender no lymphadenopathy. Lungs clear to auscultation. Heart regular rhythm rate about 75 no murmur. Chest wall nontender. Abdomen soft nondistended normal bowel sounds no peritoneal signs. Mild epigastric right upper quadrant tenderness. No Banegas sign. No McBurney's point tenderness. No hernia. No mass. No pulsatile mass. No signs of obstruction. Moving all 4 extremities. Nontender no edema. Neurologically is awake alert with no focal motor deficits. Const Vital Signs: 05/24/23 21:37 05/24/23 21:50 05/24/23 23:20 Temperature 96.9 F L Temperature Source Temporal Pulse Rate 76 68 71 Respiratory Rate 18 14 16 Blood Pressure 126/80 H 143/93 H 119/74 Blood Pressure Mean 95 106 85 Pulse Ox 98 96 Oxygen Delivery Method Room Air Positive well nourished and well developed; Negative for cachectic, contractures or unkempt General Appearance ED: well developed and NAD; Negative for unkempt, cachectic, contractures or pallor Nutritional Appearance: Negative for cachectic HEENT Reports moist mucous membranes normocephalic and atraumatic; Negative for trauma or tenderness Eyes PERRL and EOMs intact bilaterally General Eye ED: Negative for pale conjunctiva or scleral icterus Neck no lymphadenopathy, supple and no JVD General: Negative for tenderness Carotids: Negative for other Resp normal respiratory effort and clear to auscultation bilaterally Effort and Inspection: Negative for respiratory distress Auscultation: Negative for rales, rhonchi or wheezes Cardio regular rate, regular rhythm, S1 normal heart sound, S2 normal heart sound and no murmurs Rate: Negative (more content not included)... Normal [facility] Gallbladderon 05-25-2023 Gallbladder [facility] [address] [place] [address] Gallbladder MR#: [id number] Acct: [id number] Name: HAKEEM JERYR Rep #: [id number] : 1970 M 52 From: Franki Gtz MD PCP: Dr. Ash Renee MD Status: REG ER Study: Gallbladder Date of Exam: 05/24/23 Exam# [id number] Ordering Dr: Agustin Teixeira MD EXAM: US ABDOMEN LIMITED, RIGHT UPPER QUADRANT CLINICAL INDICATION: RT ABD PAIN TECHNIQUE: Real-time ultrasound of the right upper quadrant with image documentation. COMPARISON: No relevant prior studies available. FINDINGS: LIVER: Echogenic liver with no focal masses. Liver is normal in size. Right hepatic cysts measuring up to 6 mm. No intrahepatic biliary ductal dilation. GALLBLADDER: Distended gallbladder but no stones or acute cholecystitis. Sonographic Banegas''s sign is absent. No gallbladder wall thickening is demonstrated. No pericholecystic fluid. COMMON BILE DUCT: Unremarkable as visualized. The proximal common bile duct is within normal limits for the patient''s age. PANCREAS: Pancreatic tail was not visualized. Remaining pancreas is unremarkable. RIGHT KIDNEY: Right kidney is normal. There is no hydronephrosis. No shadowing calculus. No focal lesion or perinephric collection is demonstrated. FREE FLUID: No ascites. US/Gallbladder IMPRESSION: 1. Fatty steatosis. 2. Few small benign hepatic cysts. 3. Distended gallbladder but no stones or acute cholecystitis. Electronically Signed: Franki Gtz MD at 0:17 EDT , CC: Dr. Ash Renee MD; Dr. Agustin Teixeira MD Public Address Systems Mechanic: Signed [facility] L501.4020on 05-25-2023 TROPONIN-I HS 4 pg/mL Normal 3.0-78.0 [facility] Comment on above: Order Comment: 'TROP' Serial specimen #1 , #2 or #3: 1 Result Comment: Mohit lomax Note: New Test Units and Gender Specific Reference Ranges. For more information see Policy Stat Procedure [facility] High Sensitivity Troponin (TNIH) and attachments. Performed By: #### L 500.4050, L501.4020, L501.2450 #### [facility] [address] [place], [address] Lipaseon 05-25-2023 Lipase [Catalytic activity/Vol] 61 U/L Normal 13-75 [facility] Comment on above: Order Comment: 'TROP' Serial specimen #1 , #2 or #3: 1 Result Comment: Mohit lomax note: LIPASE revised reference range effective 23. New Lipase methodology. Expected to produce lower values than the previous assay method. NEW Reference Range: 13 - 75 U/L Performed By: #### L 500.4050, L501.4020, L501.2450 #### [facility] [address] [place], [address] [facility]Con 04-28-2022 [facility] REPORT Normal [facility] [place] [facility] DATE OF SERVICE: HISTORY OF PRESENT ILLNESS: This is a 51-year-old male who presents today with sore throat, cough, sinus drainage, loss of voice. Symptoms started April 25. He missed and Saturday from work and needs a slip. ALLERGIES: No known drug allergies. PAST MEDICAL HISTORY: Positive for abdominal surgery. Nonsmoker. Does drink alcohol daily. He also has a history of asthma. FAMILY HISTORY: Unremarkable. SOCIAL HISTORY: Unremarkable. PHYSICAL EXAMINATION: Weight 187 pounds. Blood pressure 130/80, pulse 74, respirations 16, temperature 98.7, pulse oximetry is 98. This is a 51-year-old male. HEENT: Membranes are inflamed. Pharynx is inflamed. He has a harsh laryngitis and a harsh tracheobronchitis cough. Neck is supple. Heart: Regular rate and rhythm. Lungs are essentially clear to auscultation in the anterior and posterior laurent bilaterally. IMPRESSION: Laryngotracheobronchitis or adult croup. PLAN: Off work April 26 through April 30, return to work May 01. No [facility] PATIENT NAME: HAKEEM JERRY [address] [facility] [address] MEDICAL REC #: [id number] [place] [address] [facility] REPORT [facility] restrictions. Given Decadron 4 mg taper and Amoxil 875 twice a day for 10 days, Tessalon Perles 200 mg 1 three times a day as needed for cough. Rest, fluids. Finish all medicines. Follow as needed. DO BERNADETTE Tapia/[id number] [facility] File#: [id number] END OF DOCUMENT / CHANGE LOG FOLLOWS Last Edited By Elec. Signed By Nazia Palmer Lisa D DO #VAULI on 07/05/2022 14:38 ET on 07/05/2022 14:38 ET Revision Number - 2 Verified/Reviewed by 07/05/22 1438 LAI [facility] PATIENT NAME: [facility] [address] MEDICAL REC #: [id number] [place] [address] [facility] REPORT [facility] Normal [facility] REPORT [facility] DATE OF SERVICE: 01/2022 HISTORY OF PRESENT ILLNESS: This is a 51-year-old male who presents today, states that he was out burning trash yesterday and afterwards went in to take a shower and had something apparently in his eyebrow, a piece of debris, and his hair or eyebrow, and it fell down. He felt it fall into his eye, and then it has just continued to burn and hurt, and he thinks it may still be in his right eye. He presents here for further evaluation. ALLERGIES: No known drug allergies. PAST MEDICAL HISTORY: Unremarkable. Nonsmoker. Does drink alcohol. FAMILY HISTORY: Unremarkable. SOCIAL HISTORY: Unremarkable. PHYSICAL EXAMINATION: Weight 183 pounds. Blood pressure 138/83, pulse 73, respirations 16, temperature 97.6, pulse oximetry 98. Visual acuity: OU 20/20,OS 20/20, OD 20/20. Last tetanus unknown. We did update him with a Tdap. Pupils are equal, round, and reactive to light and accommodating. Extraocular movements appear intact. Funduscopic exam is unremarkable. Examination of the right eye shows no visible foreign body. Eversion of the lid shows no foreign body. [facility] PATIENT NAME: HAKEEM JERRY Dr. Estrada MEDICAL REC #: [id number] [place] [address] [facility] REPORT [facility] The eye is irrigated copiously with saline and then anesthetized with tetracaine. The patient got good relief with the tetracaine, and I looked again, and I do not see any foreign body. I instilled the fluorescein and used the blue light and evaluated the eye, and there is a large corneal abrasion that basically goes around the edges of the cornea and covers from about 7 to about 11 on the edge of the cornea and almost 2 to about 4. There were no central lesions. The eye was then copiously irrigated, and gentamycin ointment was instilled, and the patient was laid flat for about 10 minutes and then allowed to sit up. PLAN: We did update his tetanus. He is given Bleph-10 ophthalmic solution 2 drops into the right eye 4 times a day for 5 days. He is not to wear his contacts for that long. I emphasized to him that he must see an photo lab specialist in 48-72 hours, sooner if complications or problems arise. The patient states he understands. He was told to use Anthony's baby wash to wash around his eyes, No Tears version. He was given an update on his Tdap. He was given a paper that shows a drawing where his corneal abrasions were, and I emphasized to the patient that failure to follow through could cost him his vision, so he needs to make sure he does that, and he states that he [facility] PATIENT NAME: HAKEEM JERRY [address] [facility] [address] MEDICAL REC #: [id number] [place] [address] [facility] REPORT [facility]ICIAN will. 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 Nazia Palmer DO /[id number] [facility] File#: [id number] END OF DOCUMENT / CHANGE LOG FOLLOWS Last Edited By Elec. Signed By Nazia Palmer Lisa D DO #LAI on 03/12/2022 15:41 ET on 03/12/2022 15:41 ET Revision Number - 2 Verified/Reviewed by 03/12/22 1541 LAI [facility] PATIENT NAME: HAKEEM JERRY [address] [facility] [address] MEDICAL REC #: [id number] [place] [address] [facility] REPORT [facility] Normal [facility] [place] 2021 Chloride [Moles/Vol] 105 mmol/L 98-107 [facility] Work Phone: Cholesterol [Mass/Vol] 223 mg/dL <200 [facility] Work Phone: Comment on above: <200 mg/dL Desirable 200-240 mg/dL Borde rline >240 mg/dL High Risk Glucose [Mass/Vol] 99 mg/dL 74-106 [facility] Work Phone: Potassium [Moles/Vol] 4.9 mmol/L 3.5-5.1 [facility] Work Phone: Comment on above: Slight Hemolysis, Result may be falsely increased. Sodium [Moles/Vol] 136 mmol/L 136-145 [facility] Work Phone: Triglyceride [Mass/Vol] 137 mg/dL [facility] Work Phone: Comment on above: The drugs N-Acetylcysteine and Metamizol e may falsely depress this assay.Serum Triglycerides Reference Interval Normal <150 mg/dL Borderline high 150 - 199 mg/dL High 200 - 499 mg/dL Very High > or = 500 mg/dL Laboratory - Chemistry and C hemistry - challengeon 02-23-2022 CO2 [Moles/Vol] 28.0 mmol/L 21.0-32.0 [facility] Work Phone: Urea nitrogen/Creat inine [Mass ratio] 17.0 mg/mg 10-20 [facility] Work Phone: No Panel Informationon 02-23 Estimated GFR (MDRD) Amer 62 mL/min >60 [facility] Work Phone: Comment on above: GFR Calc Estimated GFR (MDRD) Non-Af Amer 51 mL/min >60 [facility] Work Phone: Comment on above: Non- GFR Calc Prostate Specific Antigen Screen 1.19 ng/mL 0.00-4.00 [facility] Work Phone: Comment on above: This test was performed using the TPSA a ssay method for [facility] system. Values obtained with differentassay methods cannot be used interchangably.When changing PSA assays in the course of monitoring apatient, additional sequential testing should be carriedout to confirm baseline values. Serum or plasma calcium shu urement (mass/volume)on 02-23-2022 Calcium [Mass/Vol] 9.0 mg/dL 8.5-10.1 [facility] Work Phone: Serum or plasma cholesterol in HDL measurement (mass/volume)on 02-23-2022 Cholesterol in HDL [Mass/Vol] 46 mg/dL [facility] Work Phone: Comment on above: The drugs N-Acetylcysteine and Metamizol e may falsely depress this assay. Reference Range HDL <40 mg/dL Low HDL Cholesterol HDL >or= 60 mg/dL High HDL Cholesterol Serum or plasma cholesterol in VLDL measurement (mass/volume)on 02-23-2022 Cholesterol in VLDL [Mass/Vol] 27 mg/dL 5-40 [facility] Work Phone: Serum or plasma creatinine m easurement (mass/volume)on 02-23-2022 Creatinine [Mass/Vol] 1.53 mg/dL 0.70-1.30 [facility] Work Phone: Comment on above: The validity of the calculated GFR & GFR AA in patients over 70 years has not been determined. Clinical correlation is essential. Serum or plasma low density lipoprotein (LDL) cholesterol measurement (mass/volume)on 02-23-2022 Cholesterol in LDL [Mass/Vol] 150 mg/dL 0-130 [facility] Work Phone: Serum or plasma urea nitroge n measurement (mass/volume)on 02-23-2022 Urea nitrogen [Mass/Vol] 26 mg/dL 7-18 [facility] Work Phone: Thin prep Papanicolaou smear with manual screeningon 02-23-2022 Thin prep Papanicolaou smear with manual screening 3 5-15 [facility] Work Phone: Vital Signs Date Time Vital Sign Value Performing Clinician Shanta tobias 06-15-2025 17:14-0400 Body temperature 97.8 [degF] Dr. Ash Renee MD Work Phone: [facility] 06-15-2025 17:14-0400 Diastolic blood pressure 89 mm[Hg] Dr. Ash Renee MD Work Phone: [facility] 06-15-2025 17:14-0400 Heart rate 72 /min Dr. Ash Renee MD Work Phone: [facility] 06-15-2025 17:14-0400 Respiratory rate 16 /min Dr. Ash Renee MD Work Phone: [facility] 06-15-2025 17:14-0400 SaO2% (BldA) [Mass fraction] 100 % Dr. Ash Renee MD Work Phone: [facility] 06-15-2025 17:14-0400 Systolic blood pressure 136 mm[Hg] Dr. Ash Renee MD Work Phone: [facility] 06-15-2025 13:42-0400 Body height 175.[address] Ash Renee MD Work Phone: [facility] 06-15-2025 13:42-0400 Body mass index (BMI) [Ratio] 26.1 kg/m2 Dr. Ash Renee MD Work Phone: [facility] 06-15-2025 13:42-0400 Body weight 80.[address] Ash Renee MD Work Phone: [facility] Encounters Encounter Date Encounter Type Care Provider Facility Start: 06-15-2025 End: 06-15-2025 Emergency department patient visit Dr. Ash Renee MD Work Phone: -Emergency Department Work Phone: Start: 03-05-2024 End: 03-05-2024 ambulatory Steve WALL Facility:[facility] Start: 05-24-2023 End: 05-25-2023 Emergency department patient visit Ash Renee Facility:[facility] Start: 04-28-2022 End: 04-28-2022 Patient encounter procedure [facility] Start: 04-28-2022 Progress Note Nazia bird DO Work Phone: [facility] Start: 04-28-2022 End: 04-28-2022 Subsequent hospital visit by physician Nazia Palmer DO Work Phone: [facility] Comment on above: SORE THROAT,COUGH, S INUS DRAINAGE,LOSS OF VOICE Start: 03-04-2022 End: 03-04-2022 Patient encounter procedure [facility] Start: 03-04-2022 End: 03-04-2022 Subsequent hospital visit by physician Nazia Palmer DO Work Phone: [facility] Comment on above: RT EYE IRRITATION Start: 02-23-2022 End: 02-23-2022 Patient encounter procedure [facility] Start: 07-31-2018 Emergency department patient visit [facility] Start: 05-28-2017 Patient encounter procedure Albert Berrios MD Work Phone: [facility] Start: 05-28-2017 Progress Note Albert Berrios MD Work Phone: [facility] Plan of Treatment Date Care Activity Detail Author Start: 06-15-2025 End: 06-15-2025 [facility] Patient Education ED Epistaxis (Adult) [facility] Work Phone: Immunizations Immunization Date Immunization Notes Care Provider Fa cili 09-21-2024 influenza, seasonal, injectable, preservative free Dr. Ash Renee MD Work Phone: [facility] 09-26-2023 influenza, injectabl e, quadrivalent, preservative free Dr. Ash Renee MD Work Phone: [facility] 09-19-2022 influenza, injectabl e, quadrivalent, preservative free Dr. Ash Renee MD Work Phone: [facility] 09-06-2021 influenza, injectabl e, quadrivalent, preservative free Dr. Ash Renee MD Work Phone: [facility] 09-06-2021 influenza, seasonal, injectable [facility] Work Phone: 09-07-2020 influenza, injectabl e, quadrivalent, preservative free Dr. Ash Renee MD Work Phone: [facility] 09-07-2020 influenza, seasonal, injectable [facility] Work Phone: 11-02-2019 influenza, injectabl e, quadrivalent, preservative free Dr. Ash Renee MD Work Phone: [facility] 11-02-2019 influenza, seasonal, injectable [facility] Work Phone: 08-29-2018 influenza, injectabl e, quadrivalent, preservative free Dr. Ash Renee MD Work Phone: [facility] 08-29-2018 influenza, seasonal, injectable [facility] Work Phone: 01-30-2018 influenza, injectabl e, quadrivalent, preservative free Dr. Ash Renee MD Work Phone: [facility] 01-30-2018 influenza, seasonal, injectable [facility] Work Phone: Influenza Vaccine: [facility] Work Phone: Pneumomovax Vaccine: [facility] Work Phone: Payers Date Payer Category Payer Self-pay [id number] 2023 Unknown [id number] 2019 Unknown Unknown [id number] Unknown [id number] Unknown [id number] Social History Date Type Detail Facility Start: 11-06-2019 Tobacco smoking status NYIS Tobacco smoking consumption unknown [facility] Start: 1970 Sex Assigned At Not on file [facility] Start: 07-31-2018 None [facility] Start: 10-13-2019 Non-smoker [facility] Start: 1970 Sex Assigned At Male [facility] Start: 06-15-2025 Tobacco smoking status NHIS Never smoked tobacco (finding) [facility] Medical Equipment Procedure Code Equipment Code Equipment Origin al Text Equipment Identifier Dates MESH,SELF FIX [id number] FDA Start: 10-22-2019 MESH,SELF FIX [id number] FDA Start: 10-22-2019 MESH,SELF FIX [id number] FDA Start: 10-22-2019 MESH,SELF FIX [id number] FDA Start: 10-22-2019 Discharge summary 06-15-2025 Note Date & Type Note Facility 06-15-2025 Discharge summary [facility] Discharge summary 06-15-2025 Note Date & Type Note Facility 06-15-2025 Discharge summary Note Date/Time June 15, 2025 5:14pm [facility] Medical Records Department [address] [place] [address] Emergency Department Summary 06/15/25 MR#: [id number] Acct: [id number] Name: HAKEEM JERRY Rep #:[id number] : 1970 54 From: Agutsin Teixeira MD PCP: Dr. Ash Renee MD Status:REG ER Location: ED HPI HPI - URI History of Present Illness Chief Complaint: Nosebleed Informant: patient Onset/Context/Timing Onset: Days Context: Sudden Onset Timing: Intermittent Current Severity: Mild Maximum Severity: Moderate Narrative Narrative: 54-year-old male no CeeNU past medical history. No prior knee surgery. Has hadmultiple nosebleeds since Saturday. Primarily right-sided. At times left also. Prior incident about 4 to 5 years ago. No specific cause. He is on no medications and no blood thinners. Not even aspirin. He was seen by ENT there today cauterized. He was cauterized again this morning. Had recurrent bleed. Denies any trauma. No bruising. No hematuria. No melena. Prior similar symptoms: Yes Recent Illness/Hospitalization: No ROS ROS ED ROS Narrative Denies recent illness. Constitutional Constitutional ED: Denies chills or fever(s) Eyes Eyes: Denies blurry vision ENT ENT ED: Denies ear pain or rhinorrhea Cardiovascular Cardiovascular: Denies chest pain Respiratory/Chest Respiratory/Chest: Denies cough or dyspnea Gastrointestinal Gastrointestinal: Denies abdominal pain Genitourinary Genitourinary ED: Denies dysuria or hematuria Musculoskeletal Musculoskeletal: Denies arthralgias or back pain Integumentary Denies abscess Neurologic Neurologic: Denies headache(s) Psychiatric Psychiatric: Denies anxiety or depression Endocrine Endocrinology: Denies cold intolerance Hematologic/Lymphatic Hematologic/Lymphatic: Denies easy bleeding, easy bruising or lymphadenopathy Allergic/Immunologic Allergic/Immunologic ED: Denies mouth swelling, tongue swelling or urticaria PFSH PFSH Medical History Diverticulitis small intestine Home Medications ?Medication ?Instructions ?Recorded ?Last Taken ?Type amoxicillin 500 mg capsule 500 mg PO BID 5 days #10 ca ps 06/15/25 Unknown Rx Allergy/AdvReac Type Severity Reaction Status Date / Time No Known Allergies Allergy Verified 06/15/25 13:48 Surgical History S/P bilateral inguinal hernia repair S/P vasectomy Admission for reversal of vasectomy S/P vasectomy Social History Smoking Status: Never smoker alcohol intake: current alcohol intake frequency: 3 or more drinks per day EXAM Physical Exam Narrative Exam Narrative: 54-year-old male no acute distress vital signs stable afebrile. H EENT exam currently no active bleeding. Dried blood right naris. Posterior pharynx unremarkable. Neck nontender no lymphadenopathy. Lungs clear. Heart regular rhythm rate about 70 no murmur. Chest wall ribs nontender. Abdomen soft nontender. No inguinal axillary lymphadenopathy. Moving all 4 extremities. Nontender no edema. No bruising. Back nontender. He is awake alert. Answering questions following commands. Const Vital Signs: 06/15/25 13:42 06/15/25 17:07 Temperature 97.8 F Temperature Source Temporal Pulse Rate 73 72 Respiratory Rate 16 16 Blood Pressure 149/96 H 136/89 H Blood Pressure Mean 113 104 Pulse Ox 98 100 Oxygen Delivery Method Room Air Room Air Positive well developed; Negative for obese, cachectic or contractures General Appearance ED: well developed and NAD; Negative for cachectic, contractures, cyanotic, diaphoretic or pallor Nutritional Appearance: Negative for cachectic or obese HEENT Reports moist mucous membranes HEENT Narrative: Dried blood right naris. normocephalic and atraumatic Throat: posterior oropharynx normal Neck no lymphadenopathy, supple, no meningeal signs and no JVD General: Negative for anterior neck swelling or lymphadenopathy Resp normal respiratory effort and clear to auscultation bilaterally Cardio S1 normal heart sound, S2 normal heart sound and no murmurs Rate: regular rate Rhythm: regular rhythm GI non-tender, non-distended and no masses Back/Spine no CVA tenderness and normal ROM Extremity normal to inspection and full ROM General Extremety ED: Negative for cyanosis or tenderness General Extremity: Negative for cyanosis Neuro oriented x3 and CN's II-XII intact bilaterally Sensorium / Orientation: alert, oriented to person, oriented to place and oriented to time; Negative for orientation impaired, lethargic or stuporous Motor Exam: strength 5/5 throughout Psych mental status grossly normal Skin General Skin Exam: Negative for jaundice or pallor Lesions: no lesions Rashes: no rashes MDM MDM MDM Narrative Medical decision making narrative: 54-year-old male recurrent frequent nosebleeds last several days. Afrin nasal spray soaked cottonball to be placed in both naris. Hide the patient blow his nose. Clots came out the right. No bleeding from theleft. Both sides have been cauterized by ENT. There was 1 site of fresh blood on the right anterior nose. Right nose was packed using a Merocel pack coated with antibiotic ointment. Patient was ambulated up and down the hallway. He had no further bleeding. He did sit in the emergency department prior to packing with Afrin soaked cotton balls in both sides of his nose for 15 to 20 minutes. He will be discharged to home. Amoxicillin twice a day till the packing comes out. Follow-up with ENT his appointment this Saturday. History & Record Review Additional record(s) reviewed:: Prior inpatient record, Prior outpatient record,Prior ED visit and Prior labs Procedures Other Procedures Procedure(s): Right anterior nasal pack placed in his right naris. Nose blown. Clots removed. Prior cauterization by ENT. Afrin soaked cotton balls to both sides of his nose for 15 to 20 minutes. Bleeding resolved. Anterior Merisel pack placed in his right nares. Ambulated no further bleeding. Patient was instructed on recurrent bleeds and what to do. He has appointment to see ENT onSaturday. Discharge Plan Triage Chief Complaint: Nosebleed ED Provider: Agustin Teixeira Dx/Rx/DC Orders Clinical Impression: Anterior epistaxis Instructions: ED Epistaxis (Adult) Prescriptions: New amoxicillin 500 mg capsule 500 mg PO BID 5 Days Qty: 10 0RF Primary Care Provider: Ash Renee Referrals: James Tiwari MD [Med Staff - Active Staff] - 3-5 Days Ash Renee MD [Primary Care Provider] - Activity Restrictions/Additional Instructions: If rebleeds, then hold direct pressure for 20 to 30 minutes and ice. If you areunable to get stopped this return. Follow-up with ENT at the packing out. Amoxicillin twice a day until the packing comes out once the packing is out you can stop the antibiotic. Print Language: Citizen Of [place] Disposition Disposition: Home, Self Care What to do if you have Problems For any increased pain, shortness of breath, bleeding, nausea or vomiting, chestpain, or any unexpected problems, contact your Primary Care Provider. Call [facility] ([phone]) or report to the closest Emergency Room. Call 911 if necessary. 06/15/25 1714 <Electronically signed by Agustin Teixeira MD> Cosigner Signature (if applicable): CC: Dr. Ash Renee MD ~ Signed [facility] Work Phone: History of Present illness Narrative 04-28-2022 Nazia Ruff Spencer, DO - 04/28/2022 9:29 AM EDT Note Date & Type Note Facility 04-28-2022 History of Present illness Narrative DATE OF SERVICE: 04/28/2022 HISTORY OF PRESENT ILLNESS: This is a 51-year-old male who presents today with sore throat, cough, sinus drainage, loss of voice. Symptoms started April 25. He missed and Saturday from work and needs a slip. ALLERGIES: No known drug allergies. PAST MEDICAL HISTORY: Positive for abdominal surgery. Nonsmoker. Does drink alcohol daily. He also has a history of asthma. FAMILY HISTORY: Unremarkable. SOCIAL HISTORY: Unremarkable. PHYSICAL EXAMINATION: Weight 187 pounds. Blood pressure 130/80, pulse 74, respirations 16, temperature 98.7, pulse oximetry is 98. This is a 51-year-old male. HEENT: Membranes are inflamed. Pharynx is inflamed. He has a harsh laryngitis and a harsh tracheobronchitis cough. Neck is supple. Heart: Regular rate and rhythm. Lungs are essentially clear to auscultation in the anterior and posterior laurent bilaterally. IMPRESSION: Laryngotracheobronchitis or adult croup. PLAN: Off work April 26 through April 30, return to work May 01. No [facility] PATIENT NAME: HAKEEM JERRY Dr. Estrada MEDICAL REC #: [id number] [place] [address] [facility] REPORT [facility]ICIAN restrictions. Given Decadron 4 mg taper and Amoxil 875 twice a day for 10 days, Tessalon Perles 200 mg 1 three times a day as needed for cough. Rest, fluids. Finish all medicines. Follow as needed. Nazia Palmer DO /[id number] SSI File#: [id number] END OF DOCUMENT / CHANGE LOG FOLLOWS Last Edited By [employer]. Signed By Nazia Palmer DO #Nazia Marquez DO #LAI on 07/05/2022 14:38 ET on 07/05/2022 14:38 ET Revision Number - 2 Verified/Reviewed by 07/05/22 1438 LAI [facility] PATIENT NAME: HAKEEM JERRY Dr. 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 Symptoms have been present for the last 3 days. He denies any chest pain or shortness of breath. Denies any abdominal pain, nausea, vomiting or diarrhea. Generally, he is in good health. Denies history of chronic medical problems. Denies history of chronic cardiopulmonary problems. He has been taking Protonix and cetirizine. PHYSICAL EXAMINATION: VITAL SIGNS: Temperature 98.1, pulse is 79, respirations 16, blood pressure 141/101 and pulse ox 97% on room air. GENERAL: He was somewhat anxious. HEENT: Noted to have marked throat erythema. No edema, exudate or discharge noted. Airway was intact. No drooling or stridor noted. Ear canals were patent. TMs appeared ron with positive cone of light. NECK: Supple. No evidence of meningismus. LUNGS: On auscultation, the patient had clear breath sounds bilaterally without wheezing or rales. HEART: Regular rate and rhythm. No murmurs auscultated. ABDOMEN: Soft. Positive bowel sounds. Nontender. No guarding, rebound or rigidity. No organomegaly. EXTREMITIES: Calf muscles nontender. Homans sign negative. Intact distal pulses. Intact sensation. LABORATORY DATA: Rapid strep was negative. ASSESSMENT: Acute sinusitis. PLAN: I put him on amoxicillin and Mucinex D. Rest, increase fluids, Tylenol for pain and if worsening symptoms, go to the ER and follow with primary care physician. Albert Berrios MD SP/nts [id number] CC: Verified/Reviewed by 01/24/21 1452 PERSA1 [facility] PATIENT NAME: HAKEEM JERRY [address] [facility] [address] Estrada MEDICAL REC #: [id number] [place] [address] [facility] RE[facility]ICIAN documented in this encounter [facility] Evaluation note Note Date & Type Note Facility Evaluation note No assessment information availa ble [facility] Work Phone: Hospital Discharge instructions Note Date & Type Note Facility Hospital Discharge instructions Additional Instructions If rebleeds, then hold direct pressure for 20 to 30 minutes and ice. If you are unable to get stopped this return. Follow-up with ENT at the packing out. Amoxicillin twice a day until the packing comes out once the packing is out you can stop the antibiotic. [facility] Work Phone: Reason for referral (narrative) Note Date & Type Note Facility Reason for referral (narrative) No reason for referral information available [facility] Work Phone: Summary Purpose Family History No Family History Records FoundNo Family History Records FoundNo Family History Records Found Advance Directives Advance Directive Response Recorded Date/ Time Living Will No October 13 11:59am Power of Deep Fryer Assembler No October 13, 2019 11:59am Advance Directive Response Recorded Date/ Time 3. Do you have Advanced Directives? N April 24, 2013 1:31pm regarding your healthcare decisions? YES April 28, 2022 9:29am [facility]? NO April 28, 2022 9:29am Advance Directive Response Recorded Date/ Time Do you have a Healthcare Power of Deep [employer]er Assembler? Yes June 15, 2025 2:50pm Chief Complaint and Reason for Visit Chief Complaint E ORDER Chief Complaint Admit Date nosebleed June 15, 2025 1:41 pm Additional Source Comments (unrecognized sect ion and content) No Status Records FoundNo Status Records FoundNo Status Records Found INFORMATION SOURCE (unrecogn ized section and content) DATE CREATED AUTHOR 08/23/2018 Sys tem DATE CREATED AUTHOR AUTHOR'S ORGANIZ ATION 07/06/2022 [facility] n[facility] [place] DATE CREATED AUTHOR AUTHOR'S ORGANIZ ATION 03/06/2024 [facility] Source Comments (unrecognize d section and content) In the event this informatio n is protected by the Federal Confidentiality of Alcohol and Drug Abuse Patient Records regulations: The Federal rules restrict any use of the information to criminally investigate or prosecute any alcohol or drug abuse patient.[facility] the event this information is protected by the Federal Confidentiality of Alcohol and Drug Abuse Patient Records regulations: The Federal rules restrict any use of the information to criminally investigate or prosecute any alcohol or drug abuse patient.[facility] the event this information is protected by the Federal Confidentiality of Alcohol and Drug Abuse Patient Records regulations: The Federal rules restrict any use of the information to criminally investigate or prosecute any alcohol or drug abuse patient.[facility] the event this information is protected by the Federal Confidentiality of Alcohol and Drug Abuse Patient Records regulations: The Federal rules restrict any use of the information to criminally investigate or prosecute any alcohol or drug abuse patient.[facility] Goals (unrecognized section and content) Goals may be documented in a n alternate sectionGoals may be documented in an alternate sectionGoals may be documented in an alternate section Care Teams (unrecognized sec tion and content) Team Status: Active Member Role/Relationship Status Dates Dr. Ash Renee MD Primary Care Provider Active Team Status: Inactive Member Role/Relationship Status Dates Dr. Ash Renee MD Primary Care Provider Active Start: June 15, 2025 End: June 15, 2025 Dr. Agustin Teixeira MD Emergency Provider Active S tart: June 15, 2025 End: June 15, 2025 FOR RECORDS PERTAINING TO PATIENTS WHO ARE OR HAVE BEEN ENROLLED IN A CHEMICAL DEPENDENCY/SUBSTANCEABUSE PROGRAM, SOME INFORMATION MAY BE OMITTED. This clinical summary was aggregated from multiple sources. Caution should be exercised in using it in the provision of clinical care. This summary normalizes information from multiple sources, and as a consequence, information in this document may materially change the coding, format and clinical context of patient data. In addition, data may be omitted in some cases. CLINICAL DECISIONS SHOULD BE BASED ON THE PRIMARY CLINICAL RECORDS. [facility]. provides no warranty or guarantee of the accuracy or completeness of information in this document.
== END 2025-06-15 22:15 | disposition home or self-care (01) ==
PROVIDERS: Emergency Provider Emergency Medicine; PCP Family Medicine; Visit Provider Emergency Medicine
DX: R04.0 Epistaxis (principal)
CPT/HCPCS: 30901; 80048; 85027; 96374; 99283; A4216

== ENCOUNTER → 2025-06-29 | Outpatient (CLI) | payer OTHER, SELFPAY ==
[2025-06-29 12:22] LABS: Prothrombin Time (Protime)PT. 13.0 SECONDS (11.7-14.9)
[2025-06-29 12:23] LABS: Partial Thromboplast Time 26.5 Seconds (24.1-36.2)
[2025-06-29 12:29] LABS: Hematocrit 36.9 % (40-54); Hemoglobin 12.2 g/dL (13.0-16.5); Mean Corp Hgb Conc 33.1 g/dL (32-36); Mean Corpuscular Volume 90.0 fL (80-94); Mean Platelet Vol. 9.6 fl (6.2-12.0); Platelet Count 352 K/mm3 (150-450); RBC Distribution Width CV 13.2 % (11.6-14.6); RBC Distribution Width SD 43.3 fl (35.1-43.9); Red Blood Count 4.10 M/mm3 (4.6-6.2); White Blood Count 5.9 K/mm3 (4.4-11.0)
[2025-07-02 17:08] LABS: Protein C, Functional 115 % (73-180); VWD Studies Interp Report Note (.)
== END | disposition home or self-care (01) ==
LOC: LAB 11:27
PROVIDERS: PCP Family Medicine; Referring Provider Family Medicine; Visit Provider Family Medicine
DX: R79.1 Abnormal coagulation profile (principal)
CPT/HCPCS: 36415; 81241; 85027; 85240; 85245; 85246; 85303; 85610; 85730